=== PATIENT | female | born 1960 | race Caucasian/White ===

== ENCOUNTER 2016-07-01 00:21 | Emergency (ER) | payer MEDICAID ==
[2016-07-01] MEDS ORDERED: LIDOCAINE 1% INJ-PF (10 MG/ML) 30 ML SDV INJ ONE (01:58)
--- NOTE | 2016-07-01 05:45 | ER Document Report ---
ED Fall - General Chief Complaint: Fall Stated Complaint: FALL Mode of Arrival: Medic Information source: Patient Notes: 56-year-old female who lives at [facility] presents to emergency psychology department chair pain and laceration to right fifth finger status post mechanical fall. Patient reports was walking out of her bathroom this morning when she tripped and fell striking the left side of her head and lacerated her right fifth finger. States did not lose consciousness and remembers entire event however does not know where she cut her finger on. Denies vision changes, extremity weakness/numbness/tingling, nausea or vomiting, neck pain. States last tetanus within the last 2 years. TRAVEL OUTSIDE OF THE [place] IN LAST 30 DAYS: No - HPI Occurred: Just prior to arrival Where: Indoors Context: Tripped, Fell from standing Associated symptoms: None. denies: Lost consciousness Quality of pain: Achy Severity: Mild Pain Level: 2 - Related data Allergies/Adverse Reactions: hydromorphone HCl [From Dilaudid] Allergy (Verified 01/19/16 21:19) morphine [Morphine] Allergy (Verified 01/19/16 21:19) Past Medical History - General Information source: Patient - Social History Smoking Status: Former Smoker Frequency of alcohol use: None Drug Abuse: None Lives with: Other Family History: Reviewed & Not Pertinent, CVA, DM, Hypertension, Other - parkinson's - Past Medical History Cardiac Medical History: Reports: Hx Congestive Heart Failure, Hx Hypertension Pulmonary Medical History: Reports: Hx Bronchitis - chronic, Hx COPD Renal/ Medical History: Denies: Hx Peritoneal Dialysis Musculoskeltal Medical History: Reports Hx Fibromyalgia Psychiatric Medical History: Reports: Hx Anxiety, Hx Bipolar Disorder, Hx Depression Past Surgical History: Reports: Hx Breast Surgery - bilat lumpectomy, Hx Cardiac Catheterization - 07/19, no stents, Hx Cholecystectomy, Hx Orthopedic Surgery - back x 2, left knee, Hx Tubal Ligation. Denies: Hx Hysterectomy - Immunizations Hx Diphtheria, Pertussis, Tetanus Vaccination: Yes - UTD Hx Pneumococcal Vaccination: 01/03/15 Review of Systems - Review of Systems Constitutional: No symptoms reported EENT: No symptoms reported Cardiovascular: No symptoms reported Respiratory: No symptoms reported Gastrointestinal: No symptoms reported Genitourinary: No symptoms reported Female Genitourinary: No symptoms reported Musculoskeletal: See HPI Skin: See HPI Hematologic/Lymphatic: No symptoms reported Neurological/Psychological: No symptoms reported -: Yes All other systems reviewed and negative Physical Exam - Vital signs Vitals: Pulse Ox 93 07/01/16 00:27 - General General appearance: Appears well, Alert In distress: None - HEENT Head: Normocephalic, Ecchymosis - Patient has mild localized bruising to left forehead and slight tenderness to palpation. No instability, open wounds, or depression.. No: Atraumatic, Abrasions, Shukla's sign, Open wounds, Racoon's eyes, Tenderness, Other Eyes: Normal Conjunctiva: Normal Eyelashes: Normal Pupils: PERRL Ears: Normal External canal: Normal Tympanic membrane: Normal Sinus: Normal Nasal: Normal Mouth/Lips: Normal Mucous membranes: Normal, Moist Pharynx: Normal Neck: Normal - Respiratory Respiratory status: No respiratory distress Chest status: Nontender Breath sounds: Normal - CTAB Chest palpation: Normal - Cardiovascular Rhythm: Regular Heart sounds: Normal auscultation Murmur: No Pulses: Normal: Radial Normal capillary refill: Yes - Abdominal Inspection: Normal Distension: No distension Bowel sounds: Normal Tenderness: Nontender Organomegaly: No organomegaly - Back Back: Normal, Nontender - Extremities General upper extremity: Normal inspection, Nontender, Normal color, Normal ROM , Normal temperature General lower extremity: Normal inspection, Nontender, Normal color, Normal ROM , Normal temperature, Normal weight bearing Shoulder: Normal, Nontender Arm: Normal, Nontender Elbow: Normal, Nontender Forearm: Normal, Nontender Wrist: Normal, Nontender Hand: Laceration - Approximately 2 cm linear laceration to left distal palmar aspect right fifth finger. Full active, passive, and against resistance range of motion. Immediate capillary refill and sensation intact.. No: Normal, Nontender, Tender, Abrasion, Deformity, Dislocation, Ecchymosis, Instability, Nail injury, No evidence of human bite, No evidence of FB, Swelling, Tendon deficit, Other Hip: Normal, Nontender Thigh: Normal, Nontender Knee: Normal, Nontender Calf: Normal, Nontender Ankle: Normal, Nontender Foot: Normal, Nontender - Neurological Neuro grossly intact: Yes Cognition: Normal Orientation: AAOx4 [place] Coma Scale Eye Opening: Spontaneous [place] Coma Scale Verbal: Oriented [place] Coma Scale Motor: Obeys Commands Vira Coma Scale Total: 15 Speech: Normal Motor strength normal: LUE, RUE, LLE, RLE Sensory: Normal - Skin Skin Temperature: Warm Skin Moisture: Dry Skin Color: Normal Course - Re-evaluation Re-evalutation: 07/01/16 05:48 Patient hemodynamically stable, in no distress, neurologically intact. CT scan of head and finger x-ray negative for internal or osseous injury. Right fifth finger laceration thoroughly irrigated and wound edges approximated with interrupted nylon sutures. Patient tolerated well. Temporary finger splint placed for protection. Patient appears stable for discharge and agrees with home care, follow-up, ED return precautions. - Vital Signs Vital signs: Temp Pulse Resp BP Pulse Ox 97.8 F 11 L 162/88 H 96 07/01/16 00:33 07/01/16 06:09 07/01/16 06:09 07/01/16 06:09 - Diagnostic Test Radiology reviewed: Image reviewed, Reports reviewed Procedures - Laceration/Wound Repair Right Finger 5th digit Time completed: 05:15 Wound length (cm): 2 Wound's Depth, Shape: Superficial, Linear Laceration pre-procedure: Sterile PPE donned, Sterile drapes applied Anesthetic type: 1% Lidocaine Volume Anesthetic (mLs): 2 Wound explored: Clean, No foreign body removed Irrigated w/ Saline (mLs): 1,000 - with chlorhexidine Wound Debrided: Minimal Wound Repaired With: Sutures Suture Size/Type: 4:0, Nylon Number of Sutures: 4 Layer Closure?: No Post-procedure wound care: Sterile dressing applied - With bacitracin ointment, Splint applied - Protective finger splint Post-procedure NV exam normal: Yes Complications: No Hands front picture: 1 - Laceration Discharge - Discharge Clinical Impression: Fall Qualifiers: Encounter type: initial encounter Qualified Code(s): W19.XXXA - Unspecified fall, initial encounter Finger laceration Qualifiers: Encounter type: initial encounter Qualified Code(s): S61.219A - Laceration without foreign body of unspecified finger without damage to nail, initial encounter Forehead contusion Qualifiers: Encounter type: initial encounter Qualified Code(s): S00.83XA - Contusion of other part of head, initial encounter Condition: Stable Disposition: HOME, SELF-CARE Additional Instructions: Head Injury Precautions At this point, there is no evidence that your head injury is serious. Observation is necessary, however. Take only clear liquids for the first few hours, unless told otherwise by the doctor. If no pain medication was prescribed, you may take acetaminophen according to the directions on the bottle. Do not take any medication that may alter your level of alertness (unless you've discussed it with the doctor first) . Limit activity for the first 24 hours. Bed rest is best. During the first 24 hours, check to see approximately every two to three hours that the patient is easily arousable, responds normally, and can perform common tasks such as walking without difficulty. Contact your doctor or go to the hospital if any of the following things occur: Persistent vomiting, difficulty in arousing the patient, worsening or continued headache, or failure to improve as expected. Head injuries can cause symptoms that persist for a few days or even a few weeks. Contusion Your injury has resulted in a contusion -- a crushing of the deep tissues. No injury to important structures was detected during the physician's exam. Contusions vary in the amount of pain they cause, and in the length of time required for healing. Typically, the area will become bruised, and will remain painful to touch for two or three weeks. However, most patients are back to working and playing within a few days. After the initial period of rest and cold-packs, your symptoms (together with the doctor's recommendations) will determine how rapidly you can get back to full activity. Usually this means "do what feels okay, but don't do things that hurt." If re-examination was recommended, it's important to follow up as instructed. Call the doctor or return any time if pain increases, if swelling becomes severe, if you develop numbness or weakness in an injured extremity, or if any other alarming symptoms occur. Hand Laceration A laceration on the hand can present special problems. It may be difficult to keep the wound dry. Motion of the fingers can disturb the healing edges. Your work may involve exposure to damaging chemicals or water. Keep the wound clean and dry. If you can't keep the cut dry, undisturbed, and free of chemical exposure, please discuss this with the doctor. If any water or chemical gets onto the dressing, remove it, blot the wound dry, then apply a fresh bandage. Dressings should be changed every day. If you feel the stitches pulling as you move the hand, a splint or other form of protection is needed. If any signs of infection occur (swelling, redness, increasing tenderness, red streaks, tender lumps in the armpit, or fever), see the doctor immediately. Elevate the Injury Because of the nature of your injury, elevation will be helpful to reduce swelling. This also reduces infection risk in wounds. Keep the injury up above the level of your heart for at least the next 48 hours (or longer if the physician recommends it). LACERATION CARE: Your laceration has been sutured to keep the skin edges aligned during healing. The time of suture removal depends on the nature and location of your cut. Please follow the care instructions the doctor has outlined for you and return for further care, according to the schedule you've been given. Keep the wound and dressing clean. Unless you were told otherwise, you may shower daily, blotting the wound dry with a clean, unused towel. At other times, If the dressing gets wet or blood soaked, remove it and blot the wound dry, then reapply a new dressing. Unless you were instructed otherwise, dressings should be changed at least daily. If any signs of infection occur (swelling, redness, drainage, increasing tenderness, red streaks, tender lumps in the armpit or groin above the laceration, or fever), see the doctor immediately. ANTIBIOTIC OINTMENT PROTECTION: After cleansing, you should apply a thin coating of antibiotic ointment ( Bacitracin, not Neosporin) to the wounds at least three times daily. This lessens infection risk, and may decrease the amount of scarring. Use a q-tip or dull butter knife, not your finger, to apply this ointment. Any debris or ooze which builds up in the ointment should be gently rubbed off with a sterile gauze pad. Harder crusting may need to be gently scrubbed off with a clean wash cloth with soap and warm water, perhaps applying a warm, wet wash cloth to the wound for ten minutes first. Development of redness, severe itching, or blistering may mean allergy to the ointment. See the doctor. Acetaminophen Acetaminophen may be taken for pain relief or fever control. It's much safer than aspirin, offering a wider range of "safe" dosages. It is safe during . Some brand names are Tylenol, Panadol, Datril, Anacin 3, Tempra, and Liquiprin. Acetaminophen can be repeated every four hours. The following are maximum recommended dosages: WEIGHT Dose Drops Elixir Chewable( 80mg) (LBS.) drprs=droppers tsp=teaspoon 6 40 mg .4 ml (1/2) 6-11 80 mg .8 ml (full) 1/2 tsp 1 tab 12-16 120 mg 1 1/2 drprs 3/4 tsp 1 1/2 tabs 17-23 160 mg 2 drprs 1 tsp 2 tabs 24-30 240 mg 3 drprs 1 1/2 tsp 3 tabs 30-35 320 mg 2 tsp 4 tabs 36-41 360 mg 2 1/4 tsp 4 1 /2 tabs 42-47 400 mg 2 1/2 tsp 5 tabs 48-53 480 mg 3 tsp 6 tabs 54-59 520 mg 3 1/4 tsp 6 1 /2 tabs 60-64 560 mg 3 1/2 tsp 7 tabs 65-70 600 mg 3 3/4 tsp 7 1 /2 tabs 71-76 640 mg 4 tsp 8 tabs 77-82 720 mg 4 1/2 tsp 9 tabs 83-88 800 mg 5 tsp 10 tabs >89 pounds or adults 650 mg to 900 mg Acetaminophen can be repeated every four hours. Maximum daily dose not to exceed 4000 mg. These maximum recommended dosages are slightly higher than the dosages written on the product container, but these dosages are very safe and well below the toxic dosage for acetaminophen. FOLLOW-UP CARE: Your sutures should be removed in 7 days. To facilitate a timely removal of your sutures, you may return to the Emergency Department at [facility]. You do not need to call for an appointment, but the best time to come in for suture removal is early in the morning. If you have been referred to another physician for follow-up care, call that physicians office for an appointment as you were instructed. If you experience a significant change in your laceration, or if you are concerned there may be an infection (swelling, redness, drainage, increasing tenderness, red streaks, tender lumps in the armpit or groin above the laceration, or fever) , return to the Emergency Department immediately re-evaluation. Forms: Elevated Blood Pressure
[2016-07-01 09:21] VITALS: BP 150/84
== END 2016-07-01 09:21 | disposition home or self-care (01) ==
LOC: ER 00:21
PROC: 0HQFXZZ Repair Right Hand Skin, External Approach (ICD-10-PCS; principal; 2016-07-01)
DX: S61.216A Laceration without foreign body of right little finger without damage to nail, initial encounter (principal); S00.83XA Contusion of other part of head, initial encounter; W19.XXXA Unspecified fall, initial encounter; Y93.89 Activity, other specified; Y92.121 Bathroom in nursing home as the place of occurrence of the external cause; I10 Essential (primary) hypertension; J44.9 Chronic obstructive pulmonary disease, unspecified; Z88.5 Allergy status to narcotic agent; Z87.891 Personal history of nicotine dependence
CPT/HCPCS: 70450; 99284

== ENCOUNTER 2016-08-01 12:40 | Emergency (ER) | payer MEDICAID ==
[2016-08-01] MEDS ORDERED: MECLIZINE HCL 25 MG TABLET PO ONE (14:34)
[2016-08-01] MEDS ORDERED: IPRATROPIUM/ALBUTEROL 0.5-2.5 MG/3 ML AMPUL NEB ONE (14:34)
--- NOTE | 2016-08-01 15:13 | ER Document Report ---
ED General - General Chief Complaint: Vertigo Stated Complaint: VERTIGO Mode of Arrival: Medic Information source: Patient, H Records Notes: This is a 56-year-old female with multiple medical problems who presents from [facility] where she resides with multiple complaints. She states that for the past 3 days she has felt dizzy and off balance with standing. She also feels a fullness in her right ear. She has had no fevers or chills. No vision changes. No paresthesias or weakness. No headache. She has a history of COPD and continues to smoke. She does require chronic O2 at 4L NC. Today she has had increased cough and wheeze. She is tolerating po well. No dysuria. No diarrhea. No vomiting. TRAVEL OUTSIDE OF THE [place] IN LAST 30 DAYS: No - Related Data Allergies/Adverse Reactions: hydromorphone HCl [From Dilaudid] Allergy (Verified 01/19/16 21:19) morphine [Morphine] Allergy (Verified 01/19/16 21:19) Past Medical History - Social History Smoking Status: Former Smoker Chew tobacco use (# tins/day): No Frequency of alcohol use: None Drug Abuse: None Family History: Reviewed & Not Pertinent, CVA, DM, Hypertension, Other - parkinson's - Past Medical History Cardiac Medical History: Reports: Hx Congestive Heart Failure, Hx Hypertension Pulmonary Medical History: Reports: Hx Bronchitis - chronic, Hx COPD Renal/ Medical History: Denies: Hx Peritoneal Dialysis Musculoskeltal Medical History: Reports Hx Fibromyalgia Psychiatric Medical History: Reports: Hx Anxiety, Hx Bipolar Disorder, Hx Depression Past Surgical History: Reports: Hx Breast Surgery - bilat lumpectomy, Hx Cardiac Catheterization - 07/19, no stents, Hx Cholecystectomy, Hx Orthopedic Surgery - back x 2, left knee, Hx Tubal Ligation. Denies: Hx Hysterectomy - Immunizations Hx Diphtheria, Pertussis, Tetanus Vaccination: Yes - UTD Hx Pneumococcal Vaccination: 01/03/15 Review of Systems - Review of Systems Constitutional: No symptoms reported. denies: Chills, Fever EENT: No symptoms reported Cardiovascular: No symptoms reported. denies: Chest pain Respiratory: See HPI, Cough. denies: Short of breath Gastrointestinal: No symptoms reported Genitourinary: No symptoms reported Musculoskeletal: No symptoms reported Hematologic/Lymphatic: No symptoms reported Neurological/Psychological: See HPI. denies: Weakness, Headaches Physical Exam - Vital signs Vitals: Pulse Ox 89 L 08/01/16 12:45 - General General appearance: Appears well, Alert In distress: None Notes: alert, conversant without dyspnea - HEENT Head: Normocephalic, Atraumatic Pupils: PERRL Mucous membranes: Normal - Respiratory Respiratory status: No respiratory distress Breath sounds: Wheezing - scattered diffuse inspiratory and expiratory wheezes bilaterally - Cardiovascular Rhythm: Regular Heart sounds: Normal auscultation, S1 appreciated, S2 appreciated Murmur: No - Abdominal Inspection: Normal Distension: Distended bladder Bowel sounds: Normal Tenderness: Nontender - Extremities Notes: trace bilateral LE edema, DNVI - Neurological Neuro grossly intact: Yes Cognition: Normal Orientation: AAOx4 Speech: Normal Cranial nerves: Normal Cerebellar coordination: No: Gait ataxia, Finger-nose rhombey Motor strength normal: LUE, RUE, LLE, RLE Notes: Patient states she feels dizzy only when she stands. Neuro intact. - Psychological Associated symptoms: Normal affect, Normal mood Course - Re-evaluation Re-evalutation: 08/01/16 19:15 Patient states that she has had complete resolution of her dizziness after the meclizine. She states she is feeling much better and would like to go home. We did discuss the findings on chest x-ray of the bilateral infiltrates which may be a combination of edema and possible infiltrates. She is afebrile, not short of breath, and has a normal white count. Also she is adamant that she wants to go home and not stay in the hospital. She is received IV antibiotics in the ER and will be discharged with oral antibiotics, Lasix, and close primary care follow-up. We did discuss strict return precautions to include fevers, increasing breathing difficulty, chest pain, or any worsening symptoms and she is very agreeable with this plan. - Vital Signs Vital signs: Temp Pulse Resp BP Pulse Ox 97.6 F 87 18 151/68 H 96 08/01/16 22:02 08/01/16 22:02 08/01/16 22:02 08/01/16 22:02 08/01/16 22:02 - Laboratory Result Diagrams: 08/01/16 13:00 08/01/16 13:00 Laboratory results interpreted by me: 04/29/17 04/29/17 04/29/17 13:00 13:00 13:00 Hgb 15.7 H RDW 15.3 H AST 7 L NT-Pro-B Natriuret Pep 1130 H Discharge - Discharge Clinical Impression: Vertigo, Tobacco abuse Pneumonia Qualifiers: Pneumonia type: due to unspecified organism Laterality: bilateral Lung location : unspecified part of lung Qualified Code(s): J18.9 - Pneumonia, unspecified organism Condition: Stable Disposition: HOME, SELF-CARE Additional Instructions: PNEUMONIA: Your examination indicates that you have pneumonia. This is an infection of the lung tissue, usually caused by bacteria or a virus. Symptoms include cough, fever, shaking chills, chest pain, shortness of breath, and coughing up bloody sputum. Treatment for bacterial pneumonia includes rest, antibiotics for 10 to 14 days, increasing your clear liquid intake, a cool mist humidifier at your bedside, and fever medication. Often, a repeat chest X-ray is performed in a few weeks--even if you feel better--to ascertain whether the infection has completely resolved and no underlying lung problem is present. You should call the physician if you develop persistent vomiting, high fever that does not respond to fever medication, increasing shortness of breath , confusion, or lethargy. Also, failure to improve within two to three days is an indication for re-examination. ANTIBIOTIC INJECTION: You have been given an antibiotic injection. Sometimes the injection must be combined with antibiotic pills. For some infections, the shot provides all the antibiotic that's needed. Common side effects of antibiotics include nausea, intestinal cramping, or diarrhea. These are very unusual following a shot. Women may develop vaginal yeast infections, and babies can get yeast ( thrush) in the mouth following the use of antibiotics. Contact your physician if you develop significant side effects from this medication. Allergy to this antibiotic can result in hives, wheezing, faintness, or itching. If symptoms of allergy occur, call the doctor at once. ROCEPHIN: You have been given an injection of an antibiotic called Rocephin ( ceftriaxone). Sometimes the injection must be combined with antibiotic pills. For some infections, such as an uncomplicated ear infection, Rocephin provides all the antibiotic that's needed. The antibiotic will be in your body for about two days. For serious infections, we usually repeat doses of Rocephin daily. Side effects are very unusual following a shot. Women may develop vaginal yeast infections, and babies can get yeast (thrush) in the mouth following the use of antibiotics. Contact your physician if you have symptoms with this medication. Allergy to this antibiotic can result in hives, wheezing, faintness, or itching. If symptoms of allergy occur, call the doctor at once. ANTIBIOTIC THERAPY: You have been given an antibiotic prescription. It's important that you take all the medication, unless instructed otherwise by your physician. Failure to complete the entire course can result in relapse of your condition. Common side effects of antibiotics include nausea, intestinal cramping, or diarrhea. Women may develop vaginal yeast infections, and babies can get yeast (thrush) in the mouth following the use of antibiotics. Contact your physician if you develop significant side effects from this medication. Allergy to this antibiotic can result in hives, wheezing, faintness, or itching. If symptoms of allergy occur, stop the medication and call the doctor. DOXYCYCLINE: Doxycycline (Vibramycin, Doryx) is an antibiotic of the tetracycline family. This type of drug is useful for infections of the respiratory tract and genital tract, and is sometimes used for intestinal infections. Unlike most tetracyclines, doxycycline can be taken with food. It is longer acting, and (usually) less prone to side effects than regular tetracycline. Tetracycline antibiotics can stain immature teeth and SHOULD NOT BE TAKEN BY CHILDREN, NURSING MOTHERS, OR WOMEN. Tetracyclines can make you more prone to sunburn. Abdominal cramping, nausea, and diarrhea are occasional side effects. Women may experience vaginal yeast infections. Call the doctor at once if you develop hives, itching, shortness of breath , or lightheadedness. Vertigo You have experienced an episode of vertigo -- a whirling dizziness which may be accompanied by nausea and vomiting or staggering. Vertigo is often caused by an irritation of the inner ear, in which case it is called labyrinthitis. It can also be a symptom of a degenerating inner ear, nerve damage, or brain injury. Your physician has evaluated you to determine whether any further testing is necessary. Vertigo is often treated with dramamine or meclizine. These medications are helpful, but stronger medication may be needed if you are vomiting. Rest in bed. You should not drive or operate machinery until completely better. It may take one to three weeks for recovery. If there are new symptoms, such as decreased hearing or vision, severe headache, weakness or faintness, or confusion, call the physician. FOLLOW-UP CARE: If you have been referred to a physician for follow-up care, call the physician s office for an appointment as you were instructed or within the next two days. If you experience worsening or a significant change in your symptoms, notify the physician immediately or return to the Emergency Department at any time for re-evaluation. Prescriptions: Doxycycline Hyclate 100 mg PO BID #20 capsule Furosemide [Lasix] 20 mg PO DAILY #5 tablet Meclizine HCl 25 mg PO Q8H PRN #10 tablet PRN Reason: for dizziness Prednisone [Deltasone 20 mg Tablet] 3 tab PO DAILY 5 Days Forms: Smoking Cessation Education
[2016-08-01 15:50] LABS: ABSOLUTE BASOPHILS # (AUTO) 0.1 10^3/uL (0.0-0.2); ABSOLUTE EOSINOPHILS # (AUTO) 0.2 10^3/uL (0.0-0.6); ABSOLUTE LYMPHOCYTES (AUTO) 2.3 10^3/uL (0.5-4.7); ABSOLUTE MONOCYTES (AUTO) 0.6 10^3/uL (0.1-1.4); ABSOLUTE NEUT (AUTO) 6.3 10^3/uL (1.7-8.2); BASOPHILS % (AUTO) 0.8 % (0-2); HEMATOCRIT 45.9 % (36.0-47.0); HEMOGLOBIN 15.7 g/dL (12.0-15.5); HGB HCT DIFFERENCE 1.2; LYMPHOCYTES % (AUTO) 24.1 % (13-45); MEAN CORPUSCULAR HEMOGLOBIN 31.3 pg (27.0-33.4); MEAN CORPUSCULAR HGB CONC 34.2 g/dL (32.0-36.0); MEAN CORPUSCULAR VOLUME 91 fl (80-97); RED BLOOD COUNT 5.03 10^6/uL (3.72-5.28); RED CELL DISTRIBUTION WIDTH 15.3 % (11.5-14.0); SEGMENTED NEUTROPHILS % (AUTO) 67.1 % (42-78); WHITE BLOOD COUNT 9.3 10^3/uL (4.0-10.5)
[2016-08-01 15:56] LABS: ALANINE AMINOTRANSFERASE 17 U/L (9-52); ALBUMIN 3.9 g/dL (3.5-5.0); ALKALINE PHOSPHATASE 79 U/L (38-126); ANION GAP 13 (5-19); ASPARTATE AMINO TRANSFERASE 7 U/L (14-36); BILIRUBIN,DIRECT 0.2 mg/dL (0.0-0.4); BILIRUBIN,TOTAL 0.5 mg/dL (0.2-1.3); BLOOD UREA NITROGEN 9 mg/dL (7-20); CARBON DIOXIDE 25 mmol/L (22-30); CHLORIDE 103 mmol/L (98-107); CREATINE KINASE 36 U/L (30-135); CREATININE RESULT 0.77 mg/dL (0.52-1.25); GLUCOSE 92 mg/dL (75-110); POTASSIUM 4.5 mmol/L (3.6-5.0); SODIUM 140.5 mmol/L (137-145); TOTAL PROTEIN 7.3 g/dL (6.3-8.2)
[2016-08-01 16:21] LABS: CREATINE KINASE MB 2.15 ng/mL (<4.55); TROPONIN I < 0.012 ng/mL
[2016-08-01] MEDS ORDERED: CEFTRIAXONE 1 GM/D5W RTU 50 ML IV ONE (16:54)
[2016-08-01] MEDS ORDERED: FUROSEMIDE INJ/PF 20 MG/2 ML SDV IV ONE (16:54)
[2016-08-01] MEDS ORDERED: AZITHROMYCIN INJ 500 MG VIAL IV ONE (16:55)
[2016-08-01 19:19] LABS: APPEARANCE,URINE CLEAR; BILIRUBIN,URINE NEGATIVE (NEGATIVE); GLUCOSE, URINE NEGATIVE (NEGATIVE); KETONES,URINE NEGATIVE (NEGATIVE); LEUKOCYTE ESTERASE,URINE NEGATIVE (NEGATIVE); NITRITE,URINE NEGATIVE (NEGATIVE); PROTEIN,URINE NEGATIVE (NEGATIVE); URINE SPECIFIC GRAVITY 1.003; UROBILINOGEN,URINE NEGATIVE mg/dL (<2.0)
[2016-08-01 22:07] VITALS: BP 151/68
--- NOTE | 2016-08-02 10:19 | EKG REPORT ---
SEVERITY:- ABNORMAL ECG - SINUS RHYTHM CONSIDER RVH W/ SECONDARY REPOL ABNORMALITY : Confirmed by: Bernadette Schmitz 02-Aug-2016 10:18:17
== END 2016-08-01 22:08 | disposition home or self-care (01) ==
LOC: ER 12:40
DX: J18.9 Pneumonia, unspecified organism (principal); R42 Dizziness and giddiness; Z87.891 Personal history of nicotine dependence; J44.9 Chronic obstructive pulmonary disease, unspecified; R05 Cough; R06.2 Wheezing
CPT/HCPCS: 93005; 94640; 99284; 96375; 96365; 96367; 36415; 87040; 82553; 82550; 85025; 80053; 81001; 84484; 83880; 71010; 70450; 93010; J1940; J0456; J0696; J7620

== ENCOUNTER 2016-08-30 18:41 | Inpatient (IN) | payer MEDICARE, MEDICAID ==
[2016-08-30] MEDS ORDERED: ALBUTEROL SULFATE 0.083% NEB 2.5 MG/3 ML AMPUL NEB ONE (18:57)
[2016-08-30] MEDS ORDERED: IPRATROPIUM/ALBUTEROL 0.5-2.5 MG/3 ML AMPUL NEB ONE (18:57)
[2016-08-30] MEDS ORDERED: METHYLPREDNISOLONE INJ 125 MG/2 ML SDV IV ONE (18:57)
--- NOTE | 2016-08-30 19:04 | ER Document Report ---
ED Respiratory Problem - General Chief Complaint: Shortness Of Breath Stated Complaint: DIFFICULTY BREATHING Time Seen by Provider: 08/30/16 18:52 Mode of Arrival: Stretcher Information source: Patient, Emergency Med Personnel TRAVEL OUTSIDE OF THE [place] IN LAST 30 DAYS: No - HPI Patient complains to provider of: COPD, Cough, Short of breath Onset: Other - 3 days Duration: Worse/persistent Quality of pain: No pain Context: Hx COPD, Smoker Short of Breath: Moderate Chest pain/discomfort: Tightness Cough: Productive Sputum consistency: Mucoid Associated symptoms: Congestion, Cough, Short of breath, Wheezing Similar symptoms previously: Yes Notes: Patient is a 56-year-old female with a history of coronary artery disease, COPD , CVA, [place], bipolar disorder, who is chronically on oxygen at 3 L, who continues to smoke as well, who was sent to the emergency room via EMS from [facility] complains of difficulty breathing, respiratory distress, confusion over the past 2-3 days, she has a productive cough, as well as a fever - Related Data Allergies/Adverse Reactions: hydromorphone HCl [From Dilaudid] Allergy (Verified 01/19/16 21:19) morphine [Morphine] Allergy (Verified 01/19/16 21:19) Home Medications: Current Home Medications Albuterol Sulfate [Proair HFA Inhalation Aerosol 8.5 gm MDI] 2 puff IH QID 08/31 [History] Albuterol Sulfate [Ventolin 0.083% Neb 2.5 mg/3 ml Ampul] 2.5 mg NEB Q6 [History] Atorvastatin Calcium 10 mg PO DAILY 08/31/16 [History] Cholecalciferol (Vitamin D3) [Vitamin D3 1000 Unit Tablet] 1 tab PO DAILY [History] Escitalopram Oxalate 20 mg PO DAILY 08/31/16 [History] Fluticasone/Salmeterol [Advair 250-50 Diskus 14 Dose/Diskus] 14 inh IH DAILY [History] Potassium Chloride 10 meq PO DAILY 08/31/16 [History] Past Medical History - General Information source: Patient, Emergency Med Personnel - Social History Smoking Status: Current Every Day Smoker Family History: Reviewed & Not Pertinent, CVA, DM, Hypertension, Other - parkinson's - Past Medical History Cardiac Medical History: Reports: Hx Congestive Heart Failure, Hx Hypertension Pulmonary Medical History: Reports: Hx Bronchitis - chronic, Hx COPD Renal/ Medical History: Denies: Hx Peritoneal Dialysis Musculoskeltal Medical History: Reports Hx Fibromyalgia Psychiatric Medical History: Reports: Hx Anxiety, Hx Bipolar Disorder, Hx Depression Past Surgical History: Reports: Hx Breast Surgery - bilat lumpectomy, Hx Cardiac Catheterization - 07/19, no stents, Hx Cholecystectomy, Hx Orthopedic Surgery - back x 2, left knee, Hx Tubal Ligation. Denies: Hx Hysterectomy - Immunizations Hx Diphtheria, Pertussis, Tetanus Vaccination: Yes - UTD Hx Pneumococcal Vaccination: 01/03/15 Review of Systems - Review of Systems Constitutional: Fever EENT: No symptoms reported Cardiovascular: No symptoms reported Respiratory: See HPI Gastrointestinal: No symptoms reported Genitourinary: No symptoms reported Female Genitourinary: No symptoms reported Musculoskeletal: No symptoms reported Skin: No symptoms reported Hematologic/Lymphatic: No symptoms reported Neurological/Psychological: No symptoms reported -: Yes All other systems reviewed and negative Physical Exam - Vital signs Vitals: Resp BP Pulse Ox 34 H 123/77 90 L 08/30/16 19:17 08/30/16 19:17 08/30/16 19:17 Interpretation: Tachycardic, Hypoxic, Tachypneic - General General appearance: Alert In distress: Moderate - HEENT Head: Normocephalic, Atraumatic Eyes: Normal Conjunctiva: Normal Extraocular movements intact: Yes Eyelashes: Normal Pupils: PERRL Mucous membranes: Dry Pharynx: Normal Neck: Normal - Respiratory Respiratory status: Respiratory distress, Labored, Pursed lip breathing, Tachypnea Chest status: Nontender Breath sounds: Productive cough, Rhonchi, Wheezing Chest palpation: Normal - Cardiovascular Rhythm: Regular Heart sounds: Normal auscultation Murmur: No - Abdominal Inspection: Normal Distension: No distension Bowel sounds: Normal Tenderness: Nontender Organomegaly: No organomegaly - Back Back: Normal, Nontender - Extremities General upper extremity: Normal inspection, Nontender, Normal color, Normal ROM , Normal temperature General lower extremity: Normal inspection, Nontender, Normal color, Normal ROM , Normal temperature, Normal weight bearing. No: Violetta's sign - Neurological Cognition: Confused Orientation: Disoriented to events [place] Coma Scale Eye Opening: Spontaneous [place] Coma Scale Verbal: Confused [place] Coma Scale Motor: Obeys Commands [place] Coma Scale Total: 14 Speech: Normal Motor strength normal: LUE, RUE, LLE, RLE Sensory: Normal - Psychological Associated symptoms: Normal affect - Skin Skin Temperature: Warm Skin Moisture: Dry Skin Color: Normal Course - Vital Signs Vital signs: Temp Pulse Resp BP Pulse Ox 99.0 F 22 H 133/64 H 95 08/31/16 00:01 08/31/16 00:01 08/31/16 00:01 08/31/16 00:01 - Laboratory Result Diagrams: 08/30/16 20:25 08/30/16 20:25 Laboratory results interpreted by me: 08/30/16 08/30/16 08/30/16 20:25 20:25 20:25 WBC 11.7 H RDW 15.2 H Absolute Neutrophils 8.4 H Potassium 3.5 L Carbon Dioxide 21 L Magnesium 1.4 L Total Bilirubin 1.5 H Direct Bilirubin 1.0 H AST 6 L NT-Pro-B Natriuret Pep Urine Protein Urine Ketones Urine Bilirubin Urine Urobilinogen 08/30/16 08/30/16 20:25 21:45 WBC RDW Absolute Neutrophils Potassium Carbon Dioxide Magnesium Total Bilirubin Direct Bilirubin AST NT-Pro-B Natriuret Pep 4170 H Urine Protein 30 H Urine Ketones TRACE H Urine Bilirubin SMALL H Urine Urobilinogen 4.0 H Critical Care Note - Critical Care Note Total time excluding time spent on procedures (mins): 30 Comments: Arrived in respiratory distress, tachypnea, requiring BiPAP placement and admission to [facility] for COPD exacerbation Discharge - Discharge Clinical Impression: COPD exacerbation Condition: Fair Disposition: ADMITTED INPATIENT Admitting Provider: Hospitalist Unit Admitted: [facility]
[2016-08-30 20:43] LABS: VENOUS BLOOD HCO3 24.7 mmol/L (20-32); VENOUS BLOOD PCO2 44.4 mmHg (35-63); VENOUS BLOOD PH 7.36 (7.30-7.42)
[2016-08-30 20:44] LABS: ABSOLUTE BASOPHILS # (AUTO) 0.1 10^3/uL (0.0-0.2); ABSOLUTE EOSINOPHILS # (AUTO) 0.1 10^3/uL (0.0-0.6); ABSOLUTE LYMPHOCYTES (AUTO) 1.8 10^3/uL (0.5-4.7); ABSOLUTE MONOCYTES (AUTO) 1.3 10^3/uL (0.1-1.4); ABSOLUTE NEUT (AUTO) 8.4 10^3/uL (1.7-8.2); BASOPHILS % (AUTO) 0.6 % (0-2); EOSINOPHILS % (AUTO) 0.7 % (0-6); HEMATOCRIT 43.2 % (36.0-47.0); HEMOGLOBIN 14.4 g/dL (12.0-15.5); LYMPHOCYTES % (AUTO) 15.2 % (13-45); MEAN CORPUSCULAR HGB CONC 33.3 g/dL (32.0-36.0); MEAN CORPUSCULAR VOLUME 90 fl (80-97); MONOCYTES % (AUTO) 11.6 % (3-13); RED BLOOD COUNT 4.78 10^6/uL (3.72-5.28); RED CELL DISTRIBUTION WIDTH 15.2 % (11.5-14.0); SEGMENTED NEUTROPHILS % (AUTO) 71.9 % (42-78); WHITE BLOOD COUNT 11.7 10^3/uL (4.0-10.5)
--- NOTE | 2016-08-30 20:50 | RADIOLOGY REPORT (SQ) ---
EXAM DESCRIPTION: CHEST SINGLE VIEW COMPLETED DATE/TIME: 08/30/2016 8:18 pm REASON FOR STUDY: db COMPARISON: 08/01/2016 EXAM PARAMETERS: NUMBER OF VIEWS: One view. TECHNIQUE: Single frontal radiographic view of the chest acquired. RADIATION DOSE: NA LIMITATIONS: Patient has made a shallow inspiration. FINDINGS: LUNGS AND PLEURA: The previously described patchy diffuse bilateral airspace disease appea rs improved. Residual changes are identified. MEDIASTINUM AND HILAR STRUCTURES: There is prominence of both hilar regions presumably representing p ulmonary vascular congestion although the possibility of hilar adenopathy cannot be excluded. HEART AND VASCULAR STRUCTURES: Cardiac silhouette is unchanged in configuration. BONES: No acute findings. HARDWARE: Stimulator device is identified projected in the lower thoracic spine. OTHER: No other significant finding. IMPRESSION: Overall interval improvement in the previously described patchy diffuse bilateral airspa ce disease. Other findings as noted above TECHNICAL DOCUMENTATION: JOB ID: [id number]
[2016-08-30 21:02] LABS: ALANINE AMINOTRANSFERASE 23 U/L (9-52); ALBUMIN 3.7 g/dL (3.5-5.0); ALKALINE PHOSPHATASE 119 U/L (38-126); ANION GAP 14 (5-19); ASPARTATE AMINO TRANSFERASE 6 U/L (14-36); BILIRUBIN,TOTAL 1.5 mg/dL (0.2-1.3); BLOOD UREA NITROGEN 9 mg/dL (7-20); CALCIUM 9.5 mg/dL (8.4-10.2); CARBON DIOXIDE 21 mmol/L (22-30); CHLORIDE 105 mmol/L (98-107); CREATINE KINASE 60 U/L (30-135); CREATININE RESULT 0.71 mg/dL (0.52-1.25); GLUCOSE 107 mg/dL (75-110); POTASSIUM 3.5 mmol/L (3.6-5.0); SODIUM 140.4 mmol/L (137-145); TOTAL PROTEIN 7.7 g/dL (6.3-8.2)
[2016-08-30 21:14] LABS: CREATINE KINASE MB 1.08 ng/mL (<4.55); TROPONIN I 0.014 ng/mL
[2016-08-30 22:06] LABS: APPEARANCE,URINE CLEAR; BILIRUBIN,URINE SMALL (NEGATIVE); GLUCOSE, URINE NEGATIVE (NEGATIVE); KETONES,URINE TRACE mg/dL (NEGATIVE); LEUKOCYTE ESTERASE,URINE NEGATIVE (NEGATIVE); NITRITE,URINE NEGATIVE (NEGATIVE); PROTEIN,URINE 30 mg/dL (NEGATIVE); URINE SPECIFIC GRAVITY 1.024
[2016-08-30] MEDS ORDERED: CEFTRIAXONE INJ 1000 MG VIAL IV ONE (22:24)
[2016-08-30] MEDS ORDERED: ACETAMINOPHEN 325 MG TABLET PO PRN (22:29)
[2016-08-30] MEDS ORDERED: CEFTRIAXONE 1 GM/D5W RTU 1 GM/50 ML RTUPB IV ONE (22:52)
[2016-08-31] MEDS ORDERED: AZITHROMYCIN 500 MG in DEXTROSE 5%-WATER 250 ML IV ONE (02:00)
[2016-08-31] MEDS ORDERED: AZITHROMYCIN INJ 500 MG VIAL IV PRN (02:00)
[2016-08-31] MEDS: IPRATROPIUM/ALBUTEROL 0.5-2.5 MG/3 ML AMPUL NEB SCH ×4 (02:16→19:59)
[2016-08-31] MEDS ORDERED: AZITHROMYCIN INJ 500 MG VIAL IV ONE (03:58)
[2016-08-31] MEDS: HEPARIN SOD (PORCINE) 5,000 UNIT/ML 1 ML SYRINGE SUBCUT SCH ×3 (06:09→21:01)
[2016-08-31] MEDS ORDERED: MAGNESIUM SULFATE/D5W 1 GM/100 ML RTUPB IV ONE (06:24)
[2016-08-31 06:30] LABS: ABSOLUTE LYMPHOCYTES (AUTO) 0.7 10^3/uL (0.5-4.7); ABSOLUTE MONOCYTES (AUTO) 0.3 10^3/uL (0.1-1.4); ABSOLUTE NEUT (AUTO) 8.4 10^3/uL (1.7-8.2); BASOPHILS % (AUTO) 0.2 % (0-2); HEMATOCRIT 42.6 % (36.0-47.0); HEMOGLOBIN 14.3 g/dL (12.0-15.5); HGB HCT DIFFERENCE 0.3; LYMPHOCYTES % (AUTO) 7.6 % (13-45); MEAN CORPUSCULAR HEMOGLOBIN 30.2 pg (27.0-33.4); MEAN CORPUSCULAR HGB CONC 33.4 g/dL (32.0-36.0); MEAN CORPUSCULAR VOLUME 90 fl (80-97); MONOCYTES % (AUTO) 3.2 % (3-13); RED BLOOD COUNT 4.72 10^6/uL (3.72-5.28); RED CELL DISTRIBUTION WIDTH 15.2 % (11.5-14.0); WHITE BLOOD COUNT 9.4 10^3/uL (4.0-10.5)
[2016-08-31 06:36] LABS: ANION GAP 14 (5-19); BLOOD UREA NITROGEN 7 mg/dL (7-20); CALCIUM 9.3 mg/dL (8.4-10.2); CARBON DIOXIDE 21 mmol/L (22-30); CHLORIDE 106 mmol/L (98-107); CREATININE RESULT 0.53 mg/dL (0.52-1.25); GLUCOSE 151 mg/dL (75-110); POTASSIUM 3.9 mmol/L (3.6-5.0)
[2016-08-31] MEDS ORDERED: LORAZEPAM INJ 2 MG/1 ML VIAL ONE (06:36)
[2016-08-31] MEDS ORDERED: CLONAZEPAM 1 MG TABLET PO PRN ×2 (06:37→13:54)
[2016-08-31] MEDS ORDERED: LORAZEPAM INJ 2 MG/1 ML VIAL IV ONE ×2 (06:37→12:30)
[2016-08-31] MEDS ORDERED: NICOTINE 14 MG/24 HR PATCH.TD24 TD SCH (06:45)
--- NOTE | 2016-08-31 06:47 | PDOC H&P ---
History of Present Illness Admission Date/PCP: 08/30/16 22:29 NO LOCALMD Patient complains of: shortness of breath and cough History of Present Illness: SUKHWINDER ARTIS is a 56 year old female with a resident of [facility] and has a medical history of home oxygen dependent COPD with ongoing tobacco abuse, bipolar, anxiety disorder, restless leg syndrome, CVA and hypertension. She has been in her usual state of health until approximately 3 days ago developing shortness of breath and cough which has been progressive leading to fever prompting her to seek evaluation in the emergency room where she was found to have pneumonia by history, chest x-ray and exam. She denies chest pain nausea or vomiting she admits exceptional anxiety requesting a nicotine patch and resumption of her home medications. Past Medical History Cardiac Medical History: Reports: Congestive Heart Failure, Hypertension Pulmonary Medical History: Reports: Bronchitis - chronic, Chronic Obstructive Pulmonary Disease (COPD) Musculoskeltal Medical History: Reports: Fibromyalgia Psychiatric Medical History: Reports: Bipolar Disorder, Depression Past Surgical History Past Surgical History: Reports: Cardiac Catheterization - 07/19, no stents, Cholecystectomy, Orthopedic Surgery - back x 2, left knee, Tubal Ligation Denies: Hysterectomy Social History Information Source: Patient, [facility] Records Smoking Status: Current Every Day Smoker Cigarettes Packs Per Day: 1 Frequency of Alcohol Use: None Hx Recreational Drug Use: No Drugs: None Hx Prescription Drug Abuse: No - Advance Directive Resuscitation Status: Do Not Resuscitate Family History Family History: Reviewed & Not Pertinent, CVA, DM, Hypertension, Other - parkinson's Parental Family History Reviewed: Yes Children Family History Reviewed: Yes Sibling(s) Family History Reviewed.: Yes Medication/Allergy Home Medications: Clonazepam [Klonopin 1 mg Tablet] 1.5 mg PO TIDP PRN 06/14/14 Pregabalin [Lyrica 100 mg Capsule] 100 mg PO TID 07/15/14 Benztropine Mesylate [Benztropine Mesylate 2 mg Tablet] 2 mg PO DAILY 05/29/15 Trazodone HCl 300 mg PO QHS PRN 05/29/15 Bupropion HCl [Wellbutrin] 100 mg PO DAILY 08/25/15 Lurasidone HCl [Latuda] 60 mg PO BID 08/25/15 Pantoprazole Sodium [Protonix] 40 mg PO DAILY 08/25/15 Tizanidine HCl [Zanaflex] 4 mg PO TID 08/25/15 Ibuprofen [Motrin 600 Mg Tablet] 600 mg PO TID #30 tablet 01/19/16 Albuterol Sulfate [Proair HFA Inhalation Aerosol 8.5 gm MDI] 2 puff IH QID 08/31 Albuterol Sulfate [Ventolin 0.083% Neb 2.5 mg/3 ml Ampul] 2.5 mg NEB Q6 Atorvastatin Calcium 10 mg PO DAILY 08/31/16 Cholecalciferol (Vitamin D3) [Vitamin D3 1000 Unit Tablet] 1 tab PO DAILY Escitalopram Oxalate 20 mg PO DAILY 08/31/16 Fluticasone/Salmeterol [Advair 250-50 Diskus 14 Dose/Diskus] 14 inh IH DAILY Potassium Chloride 10 meq PO DAILY 08/31/16 Allergies/Adverse Reactions: hydromorphone HCl [From Dilaudid] Allergy (Verified 01/19/16 21:19) morphine [Morphine] Allergy (Verified 01/19/16 21:19) Review of Systems Constitutional: PRESENT: as per HPI, chills, fatigue, fever(s), weakness Eyes: ABSENT: visual disturbances Ears: ABSENT: hearing changes Cardiovascular: ABSENT: chest pain, dyspnea on exertion, edema, orthropnea, palpitations Respiratory: PRESENT: cough, dyspnea, sputum. ABSENT: hemoptysis Gastrointestinal: ABSENT: abdominal pain, constipation, diarrhea, hematemesis, hematochezia, nausea, vomiting Genitourinary: ABSENT: dysuria, hematuria Musculoskeletal: ABSENT: joint swelling Neurological: ABSENT: abnormal gait, abnormal speech, confusion, dizziness, focal weakness, syncope Psychiatric: PRESENT: anxiety, depression Endocrine: ABSENT: cold intolerance, heat intolerance, polydipsia, polyuria Hematologic/Lymphatic: ABSENT: easy bleeding, easy bruising Physical Exam Vital Signs: Temp Pulse Resp BP Pulse Ox 98.1 F 86 20 155/64 H 91 L 08/31/16 04:17 08/31/16 04:17 08/31/16 04:17 08/31/16 04:17 08/31/16 04:17 Intake & Output 08/29/16 08/30/16 08/31/16 11:59 11:59 11:59 Weight 98.6 kg General appearance: PRESENT: cooperative, disheveled, mild distress, obese Head exam: PRESENT: atraumatic, normocephalic Eye exam: PRESENT: conjunctiva pink, EOMI, PERRLA. ABSENT: scleral icterus Ear exam: PRESENT: normal external ear exam Mouth exam: PRESENT: moist, tongue midline Neck exam: ABSENT: carotid bruit, JVD, lymphadenopathy, thyromegaly Respiratory exam: PRESENT: accessory muscle use, crackles, prolonged expiratory phas, rales, retraction, rhonchi, tachypnea. ABSENT: stridor, wheezes Cardiovascular exam: PRESENT: RRR. ABSENT: diastolic murmur, rubs, systolic murmur Pulses: PRESENT: normal dorsalis pedis pul GI/Abdominal exam: PRESENT: normal bowel sounds, soft. ABSENT: distended, guarding, mass, organolmegaly, rebound, tenderness Rectal exam: PRESENT: deferred Extremities exam: PRESENT: full ROM. ABSENT: calf tenderness, clubbing, pedal edema Neurological exam: PRESENT: alert, awake, oriented to person, oriented to place , oriented to time, oriented to situation, CN II-XII grossly intact. ABSENT: motor sensory deficit Psychiatric exam: PRESENT: appropriate affect, normal mood. ABSENT: homicidal ideation, suicidal ideation Skin exam: PRESENT: dry, intact, warm. ABSENT: cyanosis, rash Results Laboratory Results: 08/31/16 06:01 08/31/16 06:01 08/31/16 08/31/16 06:01 06:01 WBC 9.4 RBC 4.72 Hgb 14.3 Hct 42.6 MCV 90 MCH 30.2 MCHC 33.4 RDW 15.2 H Plt Count 201 Seg Neutrophils % 89.0 H Lymphocytes % 7.6 L Monocytes % 3.2 Eosinophils % 0.0 Basophils % 0.2 Absolute Neutrophils 8.4 H Absolute Lymphocytes 0.7 Absolute Monocytes 0.3 Absolute Eosinophils 0.0 Absolute Basophils 0.0 Sodium 141.0 Potassium 3.9 Chloride 106 Carbon Dioxide 21 L Anion Gap 14 BUN 7 Creatinine 0.53 Est GFR ( Amer) > 60 Est GFR (Non-Af Amer) > 60 Glucose 151 H Calcium 9.3 Impressions: Chest X-Ray 08/30/16 18:57 IMPRESSION: Overall interval improvement in the previously described patchy diffuse bilateral airspace disease. Other findings as noted above Assessment & Plan - Diagnosis (1) Pneumonia Is this a current diagnosis for this admission?: YesPlan: Pneumonia care set, empiric antibiotics, albuterol, oxygen and supportive care following up CBC (2) Hypomagnesemia Is this a current diagnosis for this admission?: YesPlan: Repletion and reevaluation as needed (3) Anxiety Is this a current diagnosis for this admission?: YesPlan: Resumption of reduced dose Klonopin (4) Tobacco abuse Is this a current diagnosis for this admission?: YesPlan: Tobacco Dependence patient received tobacco cessation counseling and offered nicotine replacement options (5) COPD exacerbation Is this a current diagnosis for this admission?: YesPlan: Secondary to pneumonia, complicated by tobacco. Incentive spirometry, flutter valve consider steroids a last resort given risk of psychosis with worsening depression and anxiety (6) Congestive cardiac failure Qualifiers: Congestive heart failure type: unspecified congestive heart failure type Congestive heart failure chronicity: unspecified congestive heart failure chronicity Qualified Code(s): I50.9 - Heart failure, unspecified Is this a current diagnosis for this admission?: YesPlan: Elevated BNP suggests congestive heart failure likely secondary to decompensated COPD and pneumonia consider echocardiogram. Initiate Vasotec (7) Hypokalemia Is this a current diagnosis for this admission?: YesPlan: Repletion reevaluation - Time Time Spent: 30 to 50 Minutes - Inpatient Certification Medical Necessity: Need Close Monitoring Due to Risk of Patient Decompensation
[2016-08-31] MEDS ORDERED: TRAZODONE HCL 50 MG TABLET PO PRN ×3 (07:00→14:17)
[2016-08-31] MEDS ORDERED: BENZTROPINE MESYLATE 1 MG TABLET PO SCH (07:00)
[2016-08-31] MEDS: GUAIFENESIN 600 MG TABLET.SA PO SCH ×2 (09:46→21:03)
[2016-08-31] MEDS: ENALAPRIL MALEATE 2.5 MG TABLET PO SCH (09:46)
[2016-08-31] MEDS: NICOTINE 14 MG/24 HR PATCH.TD24 TD SCH (09:47)
[2016-08-31] MEDS ORDERED: PREGABALIN 100 MG CAPSULE PO SCH (10:00)
[2016-08-31] MEDS ORDERED: LORAZEPAM INJ 2 MG/1 ML VIAL IV PRN (11:23)
[2016-08-31] MEDS: CEFTRIAXONE 1 GM/D5W RTU 50 ML IV SCH (12:43)
[2016-08-31] MEDS ORDERED: MAGNESIUM HYDROXIDE SUSP 30 ML UDCUP PO PRN (13:54)
[2016-08-31] MEDS ORDERED: MECLIZINE HCL 25 MG TABLET PO PRN (13:54)
[2016-08-31] MEDS ORDERED: LOPERAMIDE HCL 2 MG CAPSULE PO PRN (13:54)
[2016-08-31] MEDS ORDERED: TRAZODONE HCL 250 MG PO PRN (13:54)
[2016-08-31] MEDS ORDERED: (PENDING PHARMACY ID) (Tizanidine Hcl [Zanaflex] 4 MG) PO SCH (14:00)
[2016-08-31] MEDS ORDERED: TIZANIDINE HCL 4 MG TABLET PO SCH (14:00)
[2016-08-31] MEDS ORDERED: BUPROPION HCL 100 MG TABLET PO ONE (14:30)
[2016-08-31] MEDS: TIZANIDINE HCL 4 MG TABLET PO SCH ×2 (15:05→21:03)
[2016-08-31] MEDS: IBUPROFEN 600 MG TABLET PO SCH ×2 (15:06→21:04)
[2016-08-31] MEDS: GABAPENTIN 300 MG CAPSULE PO SCH ×2 (15:06→21:02)
[2016-08-31] MEDS ORDERED: (PENDING PHARMACY ID) (Lurasidone Hcl [Latuda] 60 MG) PO SCH (18:00)
[2016-08-31] MEDS: SIMVASTATIN 10 MG TABLET PO SCH (21:03)
[2016-08-31] MEDS: BUPROPION HCL 100 MG TABLET PO SCH (21:03)
[2016-08-31] MEDS: AZITHROMYCIN 500 MG in DEXTROSE 5%-WATER 250 ML IV SCH (21:06)
--- NOTE | 2016-08-31 21:13 | EKG REPORT ---
SEVERITY:- ABNORMAL ECG - SINUS RHYTHM RVH WITH SECONDARY REPOLARIZATION ABNORMALITY ABNORMAL T, CONSIDER ISCHEMIA, LATERAL LEADS : Confirmed by: Bernadette Schmitz 31-Aug-2016 21:12:52
[2016-08-31] MEDS ORDERED: AZITHROMYCIN 500 MG in DEXTROSE 5%-WATER 250 ML IV SCH (22:00)
[2016-08-31] MEDS ORDERED: ATORVASTATIN CALCIUM 10 MG TABLET PO SCH (22:00)
[2016-09-01] MEDS: IPRATROPIUM/ALBUTEROL 0.5-2.5 MG/3 ML AMPUL NEB SCH ×2 (02:12→07:56)
[2016-09-01] MEDS: HEPARIN SOD (PORCINE) 5,000 UNIT/ML 1 ML SYRINGE SUBCUT SCH ×3 (05:02→21:30)
[2016-09-01] MEDS: IBUPROFEN 600 MG TABLET PO SCH ×3 (05:03→21:30)
[2016-09-01] MEDS: TIZANIDINE HCL 4 MG TABLET PO SCH ×3 (05:03→21:30)
[2016-09-01] MEDS: GABAPENTIN 300 MG CAPSULE PO SCH ×3 (05:04→21:31)
[2016-09-01] MEDS: LANSOPRAZOLE 30 MG TAB.RAP.DR PO SCH (05:04)
[2016-09-01] MEDS: BUPROPION HCL 100 MG TABLET PO SCH ×3 (05:04→21:30)
[2016-09-01] MEDS ORDERED: ALBUTEROL SULFATE 0.042% NEB (1.25 MG/3 ML) AMPUL NEB PRN (09:42)
[2016-09-01] MEDS ORDERED: (PENDING PHARMACY ID) (Cholecalciferol (Vitamin D3) [Vitamin D3 2000 Unit Tablet] 2,000 UN PO SCH (10:00)
[2016-09-01] MEDS ORDERED: (PENDING PHARMACY ID) (Benztropine Mesylate [Benztropine Mesylate 2 Mg Tablet] 2 MG) PO SCH (10:00)
[2016-09-01] MEDS ORDERED: (PENDING PHARMACY ID) (Escitalopram Oxalate [Escitalopram Oxalate] 20 MG) PO SCH (10:00)
[2016-09-01] MEDS ORDERED: CHOLECALCIFEROL (D3) 1,000 UNIT TABLET PO SCH (10:00)
[2016-09-01] MEDS ORDERED: BUPROPION HCL 100 MG TABLET PO SCH (10:00)
[2016-09-01] MEDS ORDERED: FLUTICASONE/SALMETEROL DISKUS 250-50 MCG/DOSE IH SCH (10:00)
--- NOTE | 2016-09-01 10:11 | PROGRESS NOTE E ---
Progress Note NAME: SUKHWINDER ARTIS : 1960 AGE: 56Y DATE: 09/01/2016 ROOM: 308 SUBJECTIVE: The patient is lying in bed. She states she feels a little better today. The patient is wearing BiPAP. I asked the patient how she does on nasal cannula. The patient stated that she had not used the nasal cannula. The patient had no reported episodes of vomiting nor diarrhea. The patient does admit to having some difficulty urinating, but she states that she "has not had anything to drink." The patient has been afebrile. Her blood pressure has been in a good range, and the patient does not voice any other concerns at this time. REVIEW OF SYSTEMS: Rest of review of systems negative. MEDICATIONS: Medications have been reviewed. OBJECTIVE: GENERAL: The patient is a 56-year-old female who is awake, alert, and oriented to person, place, time, and situation. She is verbal, conversational, does not appear to be in any acute distress. VITAL SIGNS: Temperature is 97.9, pulse 61, respirations 22, blood pressure is 119/69, oxygen saturation is 94% on BiPAP. SKIN: Warm and dry. No rash. She is not diaphoretic. HEENT: Pupils equal, round, and reactive to light and accommodation. Conjunctiva is pink. BiPAP mask is in place. No JVP. CARDIOVASCULAR SYSTEM: Heart is regular. There is no murmur or rub. CHEST: Patient does have coarse lung sounds throughout, symmetrical, unlabored at this time. ABDOMEN: Soft, nontender, nondistended. BACK: No CVA tenderness or sacral edema. EXTREMITIES: No clubbing, cyanosis, edema. PSYCHIATRIC: Appropriate affect, pleasant mood. DIAGNOSTICS: Lab values are as follows: Hematology obtained on 08/31/2016: WBCs are 9.4, hemoglobin is 14.3, hematocrit is 42.6, platelet count is 201,000. Chemistry obtained on 08/31/2016: Sodium is 141, potassium is 3.9, chloride is 106, carbon dioxide 21, BUN 7, creatinine is 0.53, glucose 151, calcium is 9.3. Urine culture obtained on 08/30/2016 reveals no growth. IMPRESSION AND PLAN: 1. CHRONIC OBSTRUCTIVE PULMONARY DISEASE EXACERBATION. Will transition the nasal cannula with a goal of 88-92%. Will also repeat venous blood gas in 1 hour to ensure no CO2 retention and follow. 2. BILATERAL PNEUMONIA. Will continue IV antibiotic coverage and follow. 3. HYPOMAGNESEMIA. This was repleted, but will continue to supplement. 4. GENERAL ANXIETY DISORDER. Will continue the patient's home Klonopin. 5. TOBACCO DEPENDENCY. Spent 3 minutes discussing smoking cessation education. The patient declines any pharmacological intervention at this time; however, will continue p.r.n. nicotine patch. 6. ELEVATED BNP. Will obtain echocardiogram given the patient's persistent dyspnea as well and follow. 7. HYPOKALEMIA. This was repleted. 8. POLYPHARMACY. Have discussed this with the patient as well. 9. HYPERLIPIDEMIA. Will continue statin. 10. GASTROESOPHAGEAL REFLUX DISEASE. Will continue PPI therapy. 11. MAJOR DEPRESSION. Will continue home medications. 12. DVT PROPHYLAXIS. Will continue subcu heparin. DISPOSITION: The patient is a FULL CODE. Pending patient's symptomatology and diagnostic findings, will re-evaluate in the a.m. for possible discharge. Time spent on this followup including assessment, plan, physical examination, patient education is 25 minutes. DICTATING PHYSICIAN: ARIANNA SARMIENTO NP [id number] PHY#: [id number] ID: [id number] JOB#: [id number] ACCT: [id number] cc: >
[2016-09-01] MEDS: BENZTROPINE MESYLATE 1 MG TABLET PO SCH (10:21)
[2016-09-01] MEDS: ENALAPRIL MALEATE 2.5 MG TABLET PO SCH (10:21)
[2016-09-01] MEDS: CEFTRIAXONE 1 GM/D5W RTU 50 ML IV SCH (10:21)
[2016-09-01] MEDS: GUAIFENESIN 600 MG TABLET.SA PO SCH ×2 (10:21→21:31)
[2016-09-01] MEDS: CHOLECALCIFEROL (D3) 1,000 UNIT TABLET PO SCH (10:22)
[2016-09-01] MEDS: ESCITALOPRAM OXALATE 10 MG TABLET PO SCH (10:22)
[2016-09-01] MEDS: NICOTINE 14 MG/24 HR PATCH.TD24 TD SCH (10:22)
[2016-09-01] MEDS: MAGNESIUM OXIDE 400 MG TABLET PO SCH ×3 (10:25→18:02)
[2016-09-01] MEDS ORDERED: (PENDING PHARMACY ID) (Bupropion Hcl [Bupropion Xl] 150 MG) PO SCH (12:00)
[2016-09-01 12:18] LABS: VENOUS BLOOD BASE EXCESS 2.9 mmol/L; VENOUS BLOOD PCO2 44.6 mmHg (35-63); VENOUS BLOOD PH 7.42 (7.30-7.42)
[2016-09-01] MEDS: ALBUTEROL SULFATE 0.083% NEB 2.5 MG/3 ML AMPUL NEB SCH ×2 (13:35→20:23)
[2016-09-01] MEDS ORDERED: (PENDING PHARMACY ID) (Lurasidone Hcl [Latuda] 60 MG) PO SCH (17:00)
[2016-09-01] MEDS: BENZONATATE 100 MG CAPSULE PO PRN (18:02)
[2016-09-01] MEDS: SIMVASTATIN 10 MG TABLET PO SCH (21:29)
[2016-09-01] MEDS: AZITHROMYCIN 500 MG in DEXTROSE 5%-WATER 250 ML IV SCH (21:32)
[2016-09-02] MEDS: BENZONATATE 100 MG CAPSULE PO PRN (02:22)
[2016-09-02] MEDS: HEPARIN SOD (PORCINE) 5,000 UNIT/ML 1 ML SYRINGE SUBCUT SCH (05:10)
[2016-09-02] MEDS: LANSOPRAZOLE 30 MG TAB.RAP.DR PO SCH (05:11)
[2016-09-02] MEDS: TIZANIDINE HCL 4 MG TABLET PO SCH (05:11)
[2016-09-02] MEDS: IBUPROFEN 600 MG TABLET PO SCH (05:11)
[2016-09-02] MEDS: BUPROPION HCL 100 MG TABLET PO SCH (05:11)
[2016-09-02] MEDS: GABAPENTIN 300 MG CAPSULE PO SCH (05:11)
[2016-09-02] MEDS ORDERED: FUROSEMIDE INJ/PF 40 MG/4 ML SDV IV ONE (07:30)
[2016-09-02] MEDS ORDERED: POTASSIUM CHLORIDE 10 MEQ TABLET.SA PO ONE (07:30)
[2016-09-02] MEDS: ALBUTEROL SULFATE 0.083% NEB 2.5 MG/3 ML AMPUL NEB SCH (08:13)
--- NOTE | 2016-09-02 08:48 | DISCHARGE SUMMARY E ---
Discharge Summary NAME: SUKHWINDER ARTIS : 1960 AGE: 56Y ADMITTED: 08/30/2016 DISCHARGED: 09/02/2016 CODE STATUS: DO NOT RESUSCITATE, DO NOT INTUBATE. PRIMARY CARE PROVIDER: Hospice. DISCHARGE DIAGNOSES: 1. Chronic obstructive pulmonary disease exacerbation. 2. Acute on chronic hypoxemic respiratory failure. 3. Pulmonary fibrosis. 4. End-stage chronic obstructive pulmonary disease. 5. Bilateral pneumonia. 6. Hypomagnesemia. 7. Generalized anxiety disorder. 8. Tobacco dependency. 9. Hypokalemia. 10. Polypharmacy. 11. Hyperlipidemia. 12. Gastroesophageal reflux disease. 13. Major depression. DISCHARGE MEDICATIONS PER HOSPICE: 1. Ceftin 500 mg p.o. b.i.d., #14 tablets and 0 refills. 2. Desyrel 250 mg p.o. nightly p.r.n. 3. Zanaflex 4 mg p.o. every 8 hours. 4. Zocor 10 mg p.o. daily. 5. Potassium chloride 10 mEq p.o. daily. 6. Percocet 5/325, 1-1/2 tablets p.o. every 6 hours. 7. Omeprazole 20 mg p.o. daily. 8. Nasonex 2 sprays nasally every 12 hours p.r.n. 9. Antivert 25 mg p.o. every 8 hours p.r.n. 10. Milk of magnesia 30 mL p.o. nightly p.r.n. 11. Latuda 60 mg p.o. b.i.d. 12. Motrin 600 mg p.o. with meals. 13. Guaifenesin plus codeine 5 mL p.o. every 4 hours p.r.n. 14. Neurontin 300 mg p.o. every 8 hours. 15. Lexapro 20 mg p.o. daily. 16. Pennsaid 1 application topically q.i.d. p.r.n. 17. Klonopin 1.5 mg p.o. every 8 hours p.r.n. 18. Vitamin D3, 2000 International Units p.o. daily. 19. Wellbutrin XL 150 mg p.o. b.i.d. 20. Benztropine mesylate 10 mg p.o. daily. 21. Albuterol 2.5 mg nebs every 8 hours p.r.n. 22. ProAir HFA 2 puffs inhalation every 6 hours. 23. Tylenol 500 mg p.o. every 4 hours p.r.n. DIET: As tolerated. ACTIVITY: As tolerated. HISTORY OF PRESENT ILLNESS: The patient is a 56-year-old daughter female with a past medical history of pulmonary fibrosis and subsequent end-stage COPD who is home O2 dependent and on hospice. The patient presented to the emergency department with a chief complaint of shortness of breath and cough. The patient had been in her usual state of health until approximately 3 days prior to presentation when the patient presented with shortness of breath and cough which had been progressive, leading to fever. The patient received evaluation in the emergency department where she was found to have pneumonia on chest x-ray. On examination, the patient denied any nausea or vomiting and admitted to exceptional anxiety and was requesting a nicotine patch and the resumption of her home medications. The patient was given antibiotics in the emergency department and was referred to the hospitalists for admission and management. HOSPITAL COURSE: The patient was admitted to continuous telemetry unit. The patient was gently hydrated and the patient's white count improved with antibiotic therapy. The patient was transitioned from the BiPAP to nasal cannula for which she did tolerate. The patient was able to get out of bed to the bedside commode with very minimal assistance. The patient was also diuresed given evidence of pulmonary vascular congestion and symptoms of this, for which the patient responded nicely. The patient's potassium was replaced. The morning of discharge, the patient is quite eager for discharge and would like to return home with hospice as prior. The patient does want her pneumonia treated with prescription and therefore, Rocephin has been provided and the patient is eager for discharge. DIAGNOSTICS: 1. Lab values are as follows: a. Hematology obtained on 08/31/2016: WBC 9.4, hemoglobin 14.3, hematocrit 42.6, platelet count 201,000. b. Venous blood gas obtained on 09/01/2016; pH 7.42, pCO2 of 44.6, bicarb 28. c. Chemistry obtained on 08/31/2016: Sodium 141, potassium 3.9, chloride 106, carbon dioxide 21, BUN 7, creatinine 0.53, glucose 151, calcium 9.3, magnesium 1.4, bilirubin 1.5, AST 6, ALT 23, alkaline phosphatase 119. CK is 60, CK-MB is 1.08. Troponin 0.014. BNP is 4170. Total protein 7.7, albumin 3.7. d. Microbiology: Urine culture obtained on 08/30/2016 reveals no growth. 2. Chest x-ray obtained on 08/30/2016 revealed overall improvement of the previously described patchy diffuse bilateral air-space disease. PHYSICAL EXAMINATION: GENERAL: The patient is a frail, chronically ill-appearing 56-year-old female who is awake, alert and oriented to person, place, time and situation. She is verbal, conversational, and does not appear to be in acute distress. VITAL SIGNS: As follows: Temperature 98.1, pulse 73, respirations 20, blood pressure 145/76, oxygen saturation 90% on 6L nasal cannula. SKIN: Warm and dry. No rash. Not diaphoretic. HEENT: Pupils are equal, round and reactive to light and accommodation. Conjunctivae are pale. There is no JVD. CARDIOVASCULAR SYSTEM: Heart is regular. There is no murmur or rub. CHEST: Very diminished, symmetrical and slightly labored. ABDOMEN: Soft, nontender, nondistended. BACK: No CVA tenderness or sacral edema. EXTREMITIES: No clubbing, cyanosis, or edema. DISCHARGE PLAN: The patient will be receiving the services of [facility] as the patient already has these established. TIME SPENT: Time spent on this discharge including assessment, plan, physical examination, patient education, and resource alignment was 25 minutes. DICTATING PHYSICIAN: ARIANNA SARMIENTO NP [id number] PHY#: [id number] ID: [id number] JOB#: [id number] ACCT: [id number] cc:BRIANNA VAUGHN M.D. ARIANNA SARMIENTO NP > [facility]
[2016-09-02] MEDS: ESCITALOPRAM OXALATE 10 MG TABLET PO SCH (10:29)
[2016-09-02] MEDS: MAGNESIUM OXIDE 400 MG TABLET PO SCH (10:29)
[2016-09-02] MEDS: GUAIFENESIN 600 MG TABLET.SA PO SCH (10:29)
[2016-09-02] MEDS: CHOLECALCIFEROL (D3) 1,000 UNIT TABLET PO SCH (10:29)
[2016-09-02] MEDS: ENALAPRIL MALEATE 2.5 MG TABLET PO SCH (10:30)
[2016-09-02] MEDS: NICOTINE 14 MG/24 HR PATCH.TD24 TD SCH (10:30)
[2016-09-02] MEDS: BENZTROPINE MESYLATE 1 MG TABLET PO SCH (10:30)
[2016-09-02] MEDS: CEFTRIAXONE 1 GM/D5W RTU 50 ML IV SCH (10:35)
[2016-09-02 12:09] VITALS: BP 114/49
--- NOTE | 2016-09-02 13:09 | XCELERA REPORT ---
[address] [address] Transthoracic Echocardiogram Report Name: SUKHWINDER ARTIS Age: 56 yrs Gender: Female : 1960 Patient Status: Inpatient Patient Location: [id number] Study Date: 09/01/2016 02:32 PM Height: 68 in Weight: 220 lb BSA: 2.1 m2 Procedure: A two-dimensional transthoracic echocardiogram with color flow and Doppler was performed. Study Quality: Fair. Reason For Study: Elevated BNP, Dyspnea History: Elevated BNP, Dyspnea. Ordering Physician: ARIANNA SARMIENTO Performed By: Sanaz Jon Interpretation Summary The left ventricle is normal in size. There is normal left ventricular wall thickness. LV EF is > than 65% Left ventricular systolic function is normal. Doppler measurements suggest normal left ventricular diastolic function The left ventricular wall motion is normal. There is no thrombus. The right ventricle is moderate to severely dilated. There is mild right ventricular hypertrophy. The right ventricular systolic function is mildly reduced. The right atrium is mild to moderately dilated. The left atrium is mildly dilated. The interatrial septum is intact with no evidence for an atrial septal defect. There is no evidence of mitral valve prolapse. There is no vegetation seen on the mitral valve. There is no mitral valve stenosis. There is a moderate amount of mitral regurgitation There is no aortic valvular vegetation. There is no aortic valve stenosis There is no LVOT obstruction. There is aortic sclerosis without stenosis. No aortic regurgitation is present. There is no tricuspid stenosis. There is a moderate to severe amount of tricuspid regurgitation RVSP is 80 tto 85 mm of Hg , with RA mean of 5 to 10. There is a moderate amount of pulmonic regurgitation There is no pericardial effusion. MMode/2D Measurements \T\ Calculations RVDd: 4.6 cm LVIDd: 4.3 cm FS: 41.6 % Ao root diam: 2.6 cm IVSd: 0.80 cm LVIDs: 2.5 cm EDV(Teich): 81.8 ml LVPWd: 0.79 cm ESV(Teich): 22.2 ml Ao root area: 5.1 cm2 EF(Teich): 72.9 % LA dimension: 4.0 cm Doppler Measurements \T\ Calculations MV E max susie: MV P1/2t max susie: Ao V2 max: LV V1 max P.6 cm/sec 107.6 cm/sec 188.5 cm/sec 8.7 mmHg MV A max susie: MV P1/2t: 51.0 msec Ao max PG: LV V1 max: 101.7 cm/sec 14.2 mmHg 147.6 cm/sec MV E/A: 1.0 MVA(P1/2t): 4.3 cm2 MV dec slope: 617.9 cm/sec2 MV dec time: 0.19 sec PA V2 max: PI end-d susie: TR max susie: 99.2 cm/sec 158.7 cm/sec 433.0 cm/sec PA max PG: TR max P.9 mmHg 75.0 mmHg Left Ventricle The left ventricle is normal in size. There is normal left ventricular wall thickness. LV EF is > than 65%. Left ventricular systolic function is normal. Doppler measurements suggest normal left ventricular diastolic function. The left ventricular wall motion is normal. There is no thrombus. There is no ventricular septal defect visualized. Right Ventricle The right ventricle is moderate to severely dilated. There is mild right ventricular hypertrophy. The right ventricular systolic function is mildly reduced. Atria The right atrium is mild to moderately dilated. The left atrium is mildly dilated. The interatrial septum is intact with no evidence for an atrial septal defect. Mitral Valve There is no evidence of mitral valve prolapse. There is no vegetation seen on the mitral valve. There is no mitral valve stenosis. There is a moderate amount of mitral regurgitation. Aortic Valve There is no aortic valvular vegetation. There is no aortic valve stenosis. There is no LVOT obstruction. There is aortic sclerosis without stenosis. No aortic regurgitation is present. Tricuspid Valve There is no tricuspid stenosis. There is a moderate to severe amount of tricuspid regurgitation. There is servere pulmonary hypertension by echo. RVSP is 80 tto 85 mm of Hg , with RA mean of 5 to 10. Pulmonic Valve There is no pulmonic valvular stenosis. There is a moderate amount of pulmonic regurgitation. Great Vessels The aortic root is normal size. Effusions There is no pericardial effusion. : ARIANNA SARMIENTO > Geeta Young
== END 2016-09-02 12:00 | disposition home health service (06) | DRG 193 ==
LOC: ER 18:41 → EH 22:29 → UNDOADMIN 22:42 → EH 22:42 → 3N 08-31 02:08
PROVIDERS: ADMIT Internal Medicine; ATTEND Internal Medicine
PROC: 5A09457 Assistance with Respiratory Ventilation, 24-96 Consecutive Hours, Continuous Positive Airway Pressure (ICD-10-PCS; principal; 2016-08-30)
DX: J18.9 Pneumonia, unspecified organism (principal); J96.21 Acute and chronic respiratory failure with hypoxia; J44.1 Chronic obstructive pulmonary disease with (acute) exacerbation; I50.9 Heart failure, unspecified; J84.10 Pulmonary fibrosis, unspecified; E83.42 Hypomagnesemia; F41.1 Generalized anxiety disorder; E87.6 Hypokalemia; E78.5 Hyperlipidemia, unspecified; K21.9 Gastro-esophageal reflux disease without esophagitis; F32.9 Major depressive disorder, single episode, unspecified; M79.7 Fibromyalgia; Z66 Do not resuscitate; Z79.899 Other long term (current) drug therapy; Z88.8 Allergy status to other drugs, medicaments and biological substances; F17.210 Nicotine dependence, cigarettes, uncomplicated; Z90.49 Acquired absence of other specified parts of digestive tract
CPT/HCPCS: 36415; 71010; 80048; 80053; 81001; 82550; 82553; 82803; 83735; 83880; 84484; 85025; 87086; 93005; 93010; 93306; 94640; 94660; 94667; 94668; 94799; 96374; 99291; J0456; J0696; J1644; J1940; J2060; J2930; J3475; J3490; J7060; J7620

== ENCOUNTER 2016-10-28 13:58 | Observation (INO) | payer OTHER, MEDICARE, MEDICAID ==
--- NOTE | 2016-10-28 14:26 | ER Document Report ---
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 She was placed on amoxicillin last week and finished a course for suspected UTI. Patient is in no distress and unable to provide any additional history. PE: No respiratory distress. alert, confused, oriented x0, moves all 4 extremities. Mild B/L wheezing. I have greeted and performed a rapid initial assessment of this patient. A comprehensive ED assessment and evaluation of the patient, analysis of test results and completion of the medical decision making process will be conducted by additional ED providers. TRAVEL OUTSIDE OF THE [place] IN LAST 30 DAYS: No - Related Data Allergies/Adverse Reactions: hydromorphone HCl [From Dilaudid] Allergy (Verified 01/19/16 21:19) morphine [Morphine] Allergy (Verified 01/19/16 21:19) Past Medical History - Social History Family history: Reviewed & Not Pertinent - Past Medical History Cardiac Medical History: Reports: Hx Congestive Heart Failure, Hx Hypertension Pulmonary Medical History: Reports: Hx Bronchitis - chronic, Hx COPD Renal/ Medical History: Denies: Hx Peritoneal Dialysis Musculoskeltal Medical History: Reports Hx Fibromyalgia Psychiatric Medical History: Reports: Hx Anxiety, Hx Bipolar Disorder, Hx Depression Past Surgical History: Reports: Hx Breast Surgery - bilat lumpectomy, Hx Cardiac Catheterization - 07/19, no stents, Hx Cholecystectomy, Hx Orthopedic Surgery - back x 2, left knee, Hx Tubal Ligation. Denies: Hx Hysterectomy - Immunizations Hx Diphtheria, Pertussis, Tetanus Vaccination: Yes - UTD
[2016-10-28 14:43] LABS: ABSOLUTE BASOPHILS # (AUTO) 0.1 10^3/uL (0.0-0.2); ABSOLUTE EOSINOPHILS # (AUTO) 0.1 10^3/uL (0.0-0.6); ABSOLUTE LYMPHOCYTES (AUTO) 2.1 10^3/uL (0.5-4.7); ABSOLUTE MONOCYTES (AUTO) 0.8 10^3/uL (0.1-1.4); ABSOLUTE NEUT (AUTO) 9.6 10^3/uL (1.7-8.2); BASOPHILS % (AUTO) 0.6 % (0-2); EOSINOPHILS % (AUTO) 0.8 % (0-6); HEMATOCRIT 52.3 % (36.0-47.0); HEMOGLOBIN 17.8 g/dL (12.0-15.5); HGB HCT DIFFERENCE 1.1; LYMPHOCYTES % (AUTO) 16.8 % (13-45); MEAN CORPUSCULAR HEMOGLOBIN 30.1 pg (27.0-33.4); MEAN CORPUSCULAR HGB CONC 34.1 g/dL (32.0-36.0); MEAN CORPUSCULAR VOLUME 88 fl (80-97); MONOCYTES % (AUTO) 6.5 % (3-13); RED BLOOD COUNT 5.94 10^6/uL (3.72-5.28); RED CELL DISTRIBUTION WIDTH 16.3 % (11.5-14.0); SEGMENTED NEUTROPHILS % (AUTO) 75.3 % (42-78); WHITE BLOOD COUNT 12.7 10^3/uL (4.0-10.5)
[2016-10-28 14:49] LABS: VENOUS BLOOD BASE EXCESS 1.2 mmol/L; VENOUS BLOOD HCO3 24.6 mmol/L (20-32); VENOUS BLOOD PCO2 36.1 mmHg (35-63); VENOUS BLOOD PH 7.45 (7.30-7.42)
[2016-10-28 15:02] LABS: ALANINE AMINOTRANSFERASE 27 U/L (9-52); ALBUMIN 4.3 g/dL (3.5-5.0); ALKALINE PHOSPHATASE 84 U/L (38-126); ANION GAP 13 (5-19); ASPARTATE AMINO TRANSFERASE 11 U/L (14-36); BILIRUBIN,DIRECT 0.3 mg/dL (0.0-0.4); BLOOD UREA NITROGEN 11 mg/dL (7-20); CALCIUM 9.6 mg/dL (8.4-10.2); CARBON DIOXIDE 22 mmol/L (22-30); CHLORIDE 103 mmol/L (98-107); CREATINE KINASE 62 U/L (30-135); CREATININE RESULT 0.78 mg/dL (0.52-1.25); GLUCOSE 107 mg/dL (75-110); LIPASE 62.3 U/L (23-300); POTASSIUM 3.9 mmol/L (3.6-5.0); SODIUM 137.8 mmol/L (137-145); TOTAL PROTEIN 8.4 g/dL (6.3-8.2)
[2016-10-28 15:04] LABS: ALCOHOL < 10 mg/dL (NONE DETECTED)
[2016-10-28] MEDS ORDERED: NORMAL SALINE 1000 ML 1,000 ML IV PRN ×2 (15:14→18:30)
--- NOTE | 2016-10-28 15:15 | RADIOLOGY REPORT (SQ) ---
EXAM DESCRIPTION: CHEST SINGLE VIEW COMPLETED DATE/TIME: 10/28/2016 2:53 pm REASON FOR STUDY: cough COMPARISON: 08/30/2016 EXAM PARAMETERS: NUMBER OF VIEWS: One view. TECHNIQUE: Single frontal radiographic view of the chest acquired. RADIATION DOSE: NA LIMITATIONS: None. FINDINGS: LUNGS AND PLEURA: Ill-defined airspace disease is present in the right upper lobe and in t he left lung. There is hilar fullness bilaterally. There is no pleural effusion. There are no new findings. There is slight improvement since earlier study. MEDIASTINUM AND HILAR STRUCTURES: No masses. Contour normal. HEART AND VASCULAR STRUCTURES: Heart normal in size. Normal vasculature. BONES: No acute findings. HARDWARE: None in the chest. OTHER: No other significant finding. IMPRESSION: Chronic airspace disease with slight improvement since the prior study. TECHNICAL DOCUMENTATION: JOB ID: [id number]
--- NOTE | 2016-10-28 15:18 | ER Document Report ---
ED General - General Chief Complaint: Altered Mental Status Stated Complaint: ALTERED MENTAL STATUS Time Seen by Provider: 10/28/16 14:24 Mode of Arrival: Stretcher Information source: Outside Facility Records TRAVEL OUTSIDE OF THE [place] IN LAST 30 DAYS: No - HPI Patient complains to provider of: AMS Onset: This morning Notes: Patient is a 56-year-old female with multiple medical problems, including end- stage COPD/emphysema, who was brought to the emergency room by EMS from assisted living facility, for change in mental status, patient is a poor historian at this point in time, and is unable to provide much detail as to the course of her illness - Related Data Allergies/Adverse Reactions: hydromorphone HCl [From Dilaudid] Allergy (Verified 10/28/16 14:55) morphine [Morphine] Allergy (Verified 10/28/16 14:55) Home Medications: Current Home Medications Benztropine Mesylate [Benztropine Mesylate 2 mg Tablet] 2 mg PO DAILY 10/28/16 [ History] Bupropion HCl [Bupropion HCl Sr] 150 mg PO QAM 10/28/16 [History] Escitalopram Oxalate 20 mg PO DAILY 10/28/16 [History] Lurasidone HCl [Latuda] 60 mg PO BID 10/28/16 [History] Potassium Chloride 10 meq PO DAILY 10/28/16 [History] Simvastatin [Simvastatin] 10 mg PO QHS 10/28/16 [History] Tizanidine HCl [Zanaflex] 4 mg PO Q8H 10/28/16 [History] Past Medical History - General Information source: [facility] Records - Social History Smoking Status: Former Smoker Family History: Reviewed & Not Pertinent, CVA, DM, Hypertension, Other - parkinson's Patient has suicidal ideation: No Patient has homicidal ideation: No - Past Medical History Cardiac Medical History: Reports: Hx Congestive Heart Failure, Hx Hypertension Pulmonary Medical History: Reports: Hx Bronchitis - chronic, Hx COPD Renal/ Medical History: Denies: Hx Peritoneal Dialysis Musculoskeltal Medical History: Reports Hx Fibromyalgia Psychiatric Medical History: Reports: Hx Anxiety, Hx Bipolar Disorder, Hx Depression Past Surgical History: Reports: Hx Breast Surgery - bilat lumpectomy, Hx Cardiac Catheterization - 07/19, no stents, Hx Cholecystectomy, Hx Orthopedic Surgery - back x 2, left knee, Hx Tubal Ligation. Denies: Hx Hysterectomy - Immunizations Hx Diphtheria, Pertussis, Tetanus Vaccination: Yes - UTD Hx Pneumococcal Vaccination: 01/03/15 Review of Systems - Review of Systems -: Yes ROS unobtainable due to patient's medical condition Physical Exam - Vital signs Vitals: Temp Pulse Resp BP Pulse Ox 98.3 F 56 L 14 126/69 H 97 10/28/16 14:37 10/28/16 14:37 10/28/16 14:37 10/28/16 14:37 10/28/16 14:37 Interpretation: Hypotensive - General General appearance: Alert In distress: None - HEENT Head: Normocephalic, Atraumatic Eyes: Normal Cornea: Normal Extraocular movements intact: Yes Eyelashes: Normal Mucous membranes: Dry Pharynx: Other - Small particles of crushed pills stuck to patient's tongue - Respiratory Respiratory status: No respiratory distress Chest status: Nontender Breath sounds: Nonproductive cough, Wheezing Chest palpation: Normal - Cardiovascular Rhythm: Regular Heart sounds: Normal auscultation - Abdominal Inspection: Normal Distension: No distension Bowel sounds: Normal Tenderness: Nontender Organomegaly: No organomegaly - Back Back: Normal, Nontender - Extremities General upper extremity: Normal inspection General lower extremity: Normal inspection - Neurological Cognition: Confused Orientation: Disoriented to events Vira Coma Scale Eye Opening: Spontaneous Vira Coma Scale Verbal: Confused [place] Coma Scale Motor: Obeys Commands [place] Coma Scale Total: 14 - Skin Skin Temperature: Warm Skin Moisture: Dry Skin Color: Normal Course - Re-evaluation Re-evalutation: 10/28/16 15:54 Patient's daughter is at bedside and reports that patient's mentation is not at baseline, when I ask her questions she responds with an answer that is completely incongruent, she does have a mild wheeze bilaterally, but otherwise vital signs are stable, daughter reports that she received a call from the [facility] on Wednesday stating that patient fell, had no apparent injury so she therefore was not sent to the hospital for evaluation at that time, but they reports she was mildly confused at that time, she was also recently treated for a urinary tract infection 10/28/16 16:39 Patient was discussed with Dr. Holley, hospitalist who agrees to admit for further evaluation - Vital Signs Vital signs: Temp Pulse Resp BP Pulse Ox 98.3 F 56 L 14 126/69 H 97 10/28/16 14:37 10/28/16 14:37 10/28/16 14:37 10/28/16 14:37 10/28/16 14:37 - Laboratory Result Diagrams: 10/28/16 14:28 10/28/16 14:28 Laboratory results interpreted by me: 10/28/16 10/28/16 10/28/16 14:28 14:28 14:28 WBC 12.7 H RBC 5.94 H Hgb 17.8 H Hct 52.3 H RDW 16.3 H Absolute Neutrophils 9.6 H VBG pH 7.45 H AST 11 L Total Protein 8.4 H Urine Urobilinogen 10/28/16 15:15 WBC RBC Hgb Hct RDW Absolute Neutrophils VBG pH AST Total Protein Urine Urobilinogen 4.0 H - Diagnostic Test Radiology reviewed: Image reviewed, Reports reviewed - EKG Interpretation by Me EKG shows normal: Sinus rhythm Rate: Normal Rhythm: NSR - Transfer of Care Care transferred to following provider: Dr Holley Discharge - Discharge Clinical Impression: COPD exacerbation, Metabolic encephalopathy Pneumonia Qualifiers: Pneumonia type: due to unspecified organism Laterality: unspecified laterality Lung location: unspecified part of lung Qualified Code(s): J18.9 - Pneumonia, unspecified organism Condition: Fair Disposition: ADMITTED INPATIENT Admitting Provider: Hospitalist Unit Admitted: Telemetry Referrals: BLAKE HALL DO [Primary Care Provider] - Follow up as needed
[2016-10-28 15:28] LABS: APPEARANCE,URINE CLEAR; BILIRUBIN,URINE NEGATIVE (NEGATIVE); GLUCOSE, URINE NEGATIVE (NEGATIVE); KETONES,URINE NEGATIVE (NEGATIVE); LEUKOCYTE ESTERASE,URINE NEGATIVE (NEGATIVE); NITRITE,URINE NEGATIVE (NEGATIVE); PROTEIN,URINE NEGATIVE (NEGATIVE); URINE SPECIFIC GRAVITY 1.019
[2016-10-28] MEDS ORDERED: ALBUTEROL SULFATE 0.083% NEB 2.5 MG/3 ML AMPUL NEB ONE (15:53)
--- NOTE | 2016-10-28 16:17 | RADIOLOGY REPORT (SQ) ---
EXAM DESCRIPTION: CT HEAD WITHOUT COMPLETED DATE/TIME: 10/28/2016 4:08 pm REASON FOR STUDY: ams COMPARISON: 08/01/2016. TECHNIQUE: Axial images acquired through the brain without intravenous contrast. Images reviewed wi th bone, brain and subdural windows. Images stored on PACS. All CT scanners at this facility use dose modulation, iterative reconstruction, and/or weight based d osing when appropriate to reduce radiation dose to as low as reasonably achievable (ALARA). [facility]: Dose Right [facility]: CareDose [facility]: Dose Right [facility]: Teradose 4D [facility]: Smart HyperWeek RADIATION DOSE: Up-to-date CT equipment and radiation dose reduction techniques were employed. CTDIv ol: 64.6 - 67.0 mGy. DLP: 2216 mGy-cm. mGy. LIMITATIONS: None. FINDINGS: VENTRICLES: Normal size and contour. CEREBRUM: No masses. No hemorrhage. No midline shift. Normal miller/white matter differentiation. N o evidence for acute infarction. CEREBELLUM: No masses. No hemorrhage. No alteration of density. No evidence for acute infarction. EXTRAAXIAL SPACES: No fluid collections. No masses. ORBITS AND GLOBE: No intra- or extraconal masses. Normal contour of globe without masses. CALVARIUM: No fracture. PARANASAL SINUSES: No fluid or mucosal thickening. SOFT TISSUES: No mass or hematoma. OTHER: No other significant finding. IMPRESSION: NORMAL BRAIN CT WITHOUT CONTRAST. TECHNICAL DOCUMENTATION: JOB ID: [id number] Quality ID # [id number]: Final reports with documentation of one or more dose reduction techniques (e.g., Au tomated exposure control, adjustment of the mA and/or kV according to patient size, use of iterative reconstruction technique) 2010 [employer]- All Rights Reserved
[2016-10-28] MEDS ORDERED: CEFTRIAXONE INJ 1000 MG VIAL IV ONE (16:36)
[2016-10-28 17:06] LABS: URINE BARBITURATES SCREEN NEGATIVE; URINE METHADONE SCREEN NEGATIVE; URINE OPIATES LOW UNCONFIRMED POSITIVE; URINE PHENCYCLIDINE SCREEN NEGATIVE
--- NOTE | 2016-10-28 17:37 | EKG REPORT ---
SEVERITY:- ABNORMAL ECG - SINUS RHYTHM PROBABLE LEFT ATRIAL ABNORMALITY PROBABLE RVH W/ SECONDARY REPOL ABNORMALITY ST ELEVATION, CONSIDER INFERIOR INJURY : Confirmed by: Geeta Young MD 28-Oct-2016 17:37:17
[2016-10-28] MEDS ORDERED: ONDANSETRON HCL INJ/PF 4 MG/2 ML SDV IV PRN (18:30)
[2016-10-28] MEDS ORDERED: ACETAMINOPHEN 325 MG TABLET PO PRN (18:30)
--- NOTE | 2016-10-28 18:49 | PDOC H&P ---
History of Present Illness Admission Date/PCP: 10/28/16 17:39 BLAKE HALL DO Patient complains of: Confusion and alteration in mental status History of Present Illness: SUKHWINDER ARTIS is a 56 year old female, with history of chronic respiratory failure, pulmonary fibrosis, end-stage COPD, on hospice apparently was [facility] because of confusion and alteration in mental status. Family is at bedside who stated that the patient started having some behavioral changes for the past few days. She noted that when she received a call from the [facility] about the situation. Patient had a fall but no significant injuries sustained. It was reported earlier that the patient is uncooperative and was given a medication by the nursing staff. Again it is unclear what medication was given according to the family. Daughter receive a call from hospice nurse who eventually sent the patient to the emergency room for evaluation of confusion. In the emergency room the patient shows mildly elevated WBC but no fever and likewise no acute changes of the chest x-ray was noted. Urinalysis was likewise negative. She had a history of polypharmacy and the daughter stated that when the patient was admitted to rehab in the past medications were cut down and the patient did well. [facility] and was resumed on all her medications which the patient daughter thinks it is too much. The patient apparently has been in hospice for almost a year. When the patient was asked she denies any specific complaints at all. She is a DO NOT RESUSCITATE. She refused to be hospitalized however she agreed to stay overnight with her daughter's persistence. The patient was then admitted. Emergency room physician reports wheezing earlier and patient was given nebulizer and it has resolved. Past Medical History Past Medical History: Medication reconciliation pending verification from the patient's pharmacist. Cardiac Medical History: Reports: Congestive Heart Failure, Coronary Artery Disease, Hypertension Pulmonary Medical History: Reports: Bronchitis - chronic, Chronic Obstructive Pulmonary Disease (COPD) - End-stage, Respiratory Failure - Chronic, Other - Pulmonary fibrosis Musculoskeltal Medical History: Reports: Fibromyalgia Psychiatric Medical History: Reports: Bipolar Disorder, Depression Past Surgical History Past Surgical History: Reports: Cardiac Catheterization - 07/19, no stents, Cholecystectomy, Orthopedic Surgery - back x 2, left knee, Tubal Ligation Denies: Hysterectomy Social History Information Source: Relative Smoking Status: Former Smoker Frequency of Alcohol Use: None Hx Recreational Drug Use: No Drugs: None Hx Prescription Drug Abuse: No Family History Family History: CVA, DM, Hypertension, Other - parkinson's Parental Family History Reviewed: Yes Children Family History Reviewed: Yes Sibling(s) Family History Reviewed.: Yes Medication/Allergy Home Medications: Benztropine Mesylate [Benztropine Mesylate 2 mg Tablet] 2 mg PO DAILY 10/28/16 Bupropion HCl [Bupropion HCl Sr] 150 mg PO QAM 10/28/16 Escitalopram Oxalate 20 mg PO DAILY 10/28/16 Lurasidone HCl [Latuda] 60 mg PO BID 10/28/16 Potassium Chloride 10 meq PO DAILY 10/28/16 Simvastatin [Simvastatin] 10 mg PO QHS 10/28/16 Tizanidine HCl [Zanaflex] 4 mg PO Q8H 10/28/16 Allergies/Adverse Reactions: hydromorphone HCl [From Dilaudid] Allergy (Verified 10/28/16 14:55) morphine [Morphine] Allergy (Verified 10/28/16 14:55) Review of Systems Constitutional: PRESENT: weakness - Generally but chronic. ABSENT: chills, fever(s), headache(s), night sweats, weight gain, weight loss Eyes: ABSENT: visual disturbances Ears: ABSENT: hearing changes Nose, Mouth, and Throat: ABSENT: mouth pain, sore throat Cardiovascular: ABSENT: chest pain, dyspnea on exertion, edema, orthropnea, palpitations Respiratory: PRESENT: cough - Chronic. ABSENT: hemoptysis Gastrointestinal: ABSENT: abdominal pain, constipation, diarrhea, hematemesis, hematochezia, melena, nausea, vomiting Genitourinary: ABSENT: dysuria, hematuria Musculoskeletal: ABSENT: joint swelling Integumentary: ABSENT: pruritus, rash, wounds Neurological: PRESENT: confusion. ABSENT: abnormal gait, abnormal speech, dizziness, focal weakness, syncope Psychiatric: ABSENT: anxiety, depression, homidical ideation, suicidal ideation Endocrine: ABSENT: cold intolerance, heat intolerance, polydipsia, polyphagia, polyuria Hematologic/Lymphatic: ABSENT: easy bleeding, easy bruising Physical Exam Vital Signs: Temp Pulse Resp BP Pulse Ox 98.3 F 56 L 14 126/69 H 97 10/28/16 14:37 10/28/16 14:37 10/28/16 14:37 10/28/16 14:37 10/28/16 14:37 General appearance: PRESENT: no acute distress, cooperative, other - Nasal cannula oxygen Head exam: PRESENT: atraumatic, normocephalic Eye exam: PRESENT: conjunctiva pale, EOMI, PERRLA. ABSENT: scleral icterus Ear exam: PRESENT: normal external ear exam. ABSENT: drainage Mouth exam: PRESENT: dry mucosa, neck supple, tongue midline Neck exam: ABSENT: carotid bruit, JVD, lymphadenopathy, thyromegaly Respiratory exam: PRESENT: clear to auscultation terra. ABSENT: rales, rhonchi, wheezes Cardiovascular exam: PRESENT: RRR. ABSENT: diastolic murmur, rubs, systolic murmur Pulses: PRESENT: normal dorsalis pedis pul Vascular exam: PRESENT: normal capillary refill GI/Abdominal exam: PRESENT: normal bowel sounds, soft. ABSENT: distended, guarding, mass, organolmegaly, rebound, tenderness Rectal exam: PRESENT: deferred Extremities exam: PRESENT: full ROM. ABSENT: calf tenderness, clubbing, pedal edema Neurological exam: PRESENT: alert, awake, oriented to person, oriented to place , oriented to time, oriented to situation Psychiatric exam: PRESENT: appropriate affect, normal mood. ABSENT: homicidal ideation, suicidal ideation Skin exam: PRESENT: dry, intact, warm. ABSENT: cyanosis, rash Results Impressions: Chest X-Ray 10/28/16 14:24 IMPRESSION: Chronic airspace disease with slight improvement since the prior study. Head CT 10/28/16 15:53 IMPRESSION: NORMAL BRAIN CT WITHOUT CONTRAST. Assessment & Plan - Diagnosis (1) Metabolic encephalopathy Is this a current diagnosis for this admission?: Yes (2) Chronic respiratory failure with hypoxia Is this a current diagnosis for this admission?: Yes (3) End stage COPD Is this a current diagnosis for this admission?: Yes (4) Pulmonary fibrosis Is this a current diagnosis for this admission?: Yes (5) Generalized anxiety disorder Is this a current diagnosis for this admission?: Yes (6) Situational depression Is this a current diagnosis for this admission?: Yes (7) Hyperlipidemia Qualifiers: Hyperlipidemia type: unspecified Qualified Code(s): E78.5 - Hyperlipidemia, unspecified Is this a current diagnosis for this admission?: Yes (8) Coronary artery disease Qualifiers: Coronary Disease-Associated Artery/Lesion type: [place] artery [place] vs. transplanted heart: [place] heart Associated angina: without angina Qualified Code(s): I25.10 - Atherosclerotic heart disease of [place] coronary artery without angina pectoris Is this a current diagnosis for this admission?: Yes (9) Gastroesophageal reflux disease Qualifiers: Esophagitis presence: without esophagitis Qualified Code(s): K21.9 - Gastro-esophageal reflux disease without esophagitis Is this a current diagnosis for this admission?: Yes - Time Time Spent: 30 to 50 Minutes - Plan Summary Plan Summary: The patient will be placed in observation. We will [facility] the [facility]. In the meantime I will hydrate the patient gently. We will give bronchodilators as needed. I will continue the patient's metered-dose inhalers. DVT prophylaxis with Lovenox will be placed supplemental oxygen will be given. Patient's encephalopathy probably related to medication. Continue supportive care. We will transfer back to skilled facility in the morning when improved or stable.
[2016-10-28] MEDS ORDERED: ALBUTEROL SULFATE 0.083% NEB 2.5 MG/3 ML AMPUL NEB PRN (18:53)
[2016-10-28] MEDS ORDERED: ENOXAPARIN SODIUM INJ 40 MG/0.4 ML DISP.SYRIN SUBCUT ONE (20:00)
[2016-10-28] MEDS: BUPROPION HCL 75 MG TABLET PO SCH (21:29)
[2016-10-28] MEDS: FLUTICASONE/SALMETEROL DISKUS 500-50 MCG/DOSE IH SCH (21:30)
[2016-10-28] MEDS: IPRATROPIUM/ALBUTEROL 120 PUFF/4 GM MDI IH SCH (23:11)
[2016-10-29 04:26] LABS: HEMATOCRIT 48.7 % (36.0-47.0); HEMOGLOBIN 16.5 g/dL (12.0-15.5); HGB HCT DIFFERENCE 0.8; MEAN CORPUSCULAR HEMOGLOBIN 29.8 pg (27.0-33.4); MEAN CORPUSCULAR HGB CONC 33.9 g/dL (32.0-36.0); MEAN CORPUSCULAR VOLUME 88 fl (80-97); RED BLOOD COUNT 5.53 10^6/uL (3.72-5.28); RED CELL DISTRIBUTION WIDTH 15.9 % (11.5-14.0); WHITE BLOOD COUNT 11.3 10^3/uL (4.0-10.5)
[2016-10-29 04:39] LABS: ANION GAP 12 (5-19); BLOOD UREA NITROGEN 6 mg/dL (7-20); CALCIUM 9.2 mg/dL (8.4-10.2); CARBON DIOXIDE 21 mmol/L (22-30); CHLORIDE 108 mmol/L (98-107); CREATININE RESULT 0.57 mg/dL (0.52-1.25); GLUCOSE 107 mg/dL (75-110); POTASSIUM 3.7 mmol/L (3.6-5.0); SODIUM 141.3 mmol/L (137-145)
[2016-10-29] MEDS: LANSOPRAZOLE 30 MG TAB.RAP.DR PO SCH (05:35)
[2016-10-29] MEDS: IPRATROPIUM/ALBUTEROL 120 PUFF/4 GM MDI IH SCH ×3 (05:35→17:48)
[2016-10-29] MEDS ORDERED: ONDANSETRON HCL INJ/PF 4 MG/2 ML SDV IV PRN (07:30)
[2016-10-29] MEDS: DOCUSATE SODIUM 100 MG CAPSULE PO SCH ×2 (09:19→17:11)
[2016-10-29] MEDS: BENZTROPINE MESYLATE 1 MG TABLET PO SCH (09:22)
[2016-10-29] MEDS: ENOXAPARIN SODIUM INJ 40 MG/0.4 ML DISP.SYRIN SUBCUT SCH (09:22)
[2016-10-29] MEDS: BUPROPION HCL 75 MG TABLET PO SCH ×2 (09:22→21:33)
[2016-10-29] MEDS: FLUTICASONE/SALMETEROL DISKUS 500-50 MCG/DOSE IH SCH ×2 (09:23→21:33)
[2016-10-29] MEDS ORDERED: (PENDING PHARMACY ID) (Lurasidone Hcl [Latuda] 60 MG) PO SCH ×2 (10:00→22:00)
[2016-10-29] MEDS ORDERED: (PENDING PHARMACY ID) (Benztropine Mesylate [Benztropine Mesylate 2 Mg Tablet] 2 MG) PO SCH (10:00)
[2016-10-29] MEDS ORDERED: CLONAZEPAM 1 MG TABLET PO PRN (11:27)
[2016-10-29] MEDS ORDERED: ESCITALOPRAM OXALATE 10 MG TABLET PO ONE (12:15)
[2016-10-29] MEDS: OXYCODONE HCL IR 5 MG TABLET PO SCH ×2 (12:42→17:47)
[2016-10-29] MEDS: TIZANIDINE HCL 4 MG TABLET PO SCH ×2 (14:05→17:48)
[2016-10-29] MEDS: GABAPENTIN 300 MG CAPSULE PO SCH ×2 (14:05→21:32)
--- NOTE | 2016-10-29 14:51 | PDOC PROGRESS REPORT ---
Subjective Progress Note for:: 10/29/16 Subjective:: The patient reportedly by staff restless and wanting to go home, still having bouts of confusion. No reported temperature spikes, nausea or vomiting, chills or fever. No shortness of breath reported as well. Patient reports being fine. Physical Exam Vital Signs: Temp Pulse Resp BP Pulse Ox 97.6 F 85 20 151/52 H 96 10/29/16 11:41 10/29/16 11:41 10/29/16 11:41 10/29/16 11:41 10/29/16 11:41 Intake & Output 10/28/16 10/29/16 10/30/16 06:59 06:59 06:59 Intake Total 1150 Output Total 950 Balance 200 Weight 90.8 kg General appearance: PRESENT: no acute distress, cooperative Head exam: PRESENT: normocephalic Eye exam: PRESENT: EOMI Mouth exam: PRESENT: moist, neck supple Neck exam: ABSENT: JVD Respiratory exam: PRESENT: clear to auscultation terra. ABSENT: rhonchi, wheezes Cardiovascular exam: PRESENT: RRR. ABSENT: gallop GI/Abdominal exam: PRESENT: hypoactive bowel sounds, soft. ABSENT: distended Extremities exam: ABSENT: pedal edema Neurological exam: PRESENT: alert, awake, oriented to situation Skin exam: PRESENT: dry, warm. ABSENT: cyanosis Results Laboratory Results: 10/29/16 04:10 10/29/16 04:10 10/29/16 10/29/16 10/29/16 04:10 04:10 04:10 WBC 11.3 H RBC 5.53 H Hgb 16.5 H Hct 48.7 H MCV 88 MCH 29.8 MCHC 33.9 RDW 15.9 H Plt Count 143 L Sodium 141.3 Potassium 3.7 Chloride 108 H Carbon Dioxide 21 L Anion Gap 12 BUN 6 L Creatinine 0.57 Est GFR ( Amer) > 60 Est GFR (Non-Af Amer) > 60 Glucose 107 Calcium 9.2 TSH 1.28 Impressions: Chest X-Ray 10/28/16 14:24 IMPRESSION: Chronic airspace disease with slight improvement since the prior study. Head CT 10/28/16 15:53 IMPRESSION: NORMAL BRAIN CT WITHOUT CONTRAST. Assessment & Plan - Diagnosis (1) Metabolic encephalopathy Is this a current diagnosis for this admission?: Yes (2) Chronic respiratory failure with hypoxia Is this a current diagnosis for this admission?: Yes (3) End stage COPD Is this a current diagnosis for this admission?: Yes (4) Pulmonary fibrosis Is this a current diagnosis for this admission?: Yes (5) Generalized anxiety disorder Is this a current diagnosis for this admission?: Yes (6) Situational depression Is this a current diagnosis for this admission?: Yes (7) Hyperlipidemia Qualifiers: Hyperlipidemia type: unspecified Qualified Code(s): E78.5 - Hyperlipidemia, unspecified Is this a current diagnosis for this admission?: Yes (8) Coronary artery disease Qualifiers: Coronary Disease-Associated Artery/Lesion type: [place] artery [place] vs. transplanted heart: [place] heart Associated angina: without angina Qualified Code(s): I25.10 - Atherosclerotic heart disease of [place] coronary artery without angina pectoris Is this a current diagnosis for this admission?: Yes (9) Gastroesophageal reflux disease Qualifiers: Esophagitis presence: without esophagitis Qualified Code(s): K21.9 - Gastro-esophageal reflux disease without esophagitis Is this a current diagnosis for this admission?: Yes - Time Time Spent with patient: 25-34 minutes - Plan Summary Plan Summary: I have discussed case with daughter as well as with The patient's sister. We will try to minimize medications however patient may exhibit agitation due to chronicity of intake of current regimen. Patient may need to be tapered slowly on an outpatient basis. Continue to follow cultures. Continue gentle hydration. I will resume the patient's home medications. I will keep the patient for 24 more hours and verify her hospice situation. Continue supportive care.
--- NOTE | 2016-10-29 16:10 | RADIOLOGY REPORT (SQ) ---
EXAM DESCRIPTION: KUB/ABDOMEN (SINGLE VIEW) COMPLETED DATE/TIME: 10/29/2016 3:46 pm REASON FOR STUDY: fecal impaction COMPARISON: 09/19/2012 NUMBER OF VIEWS: One view. TECHNIQUE: Supine radiographic image of the abdomen acquired. LIMITATIONS: None. FINDINGS: BOWEL GAS PATTERN: Abundant fecal material throughout nondilated colon. CALCIFICATIONS: No suspicious calcifications. SOFT TISSUES: No gross mass or suggestion of organomegaly. HARDWARE: Sacral fusion. IVC filter. Thoracic neurostimulator. Clips right upper and left lower qu adrant. BONES: No bone lesions or fracture. OTHER: No other significant finding. IMPRESSION: Fecal retention.
[2016-10-29] MEDS ORDERED: BUPROPION HCL 75 MG TABLET PO SCH (22:00)
[2016-10-30] MEDS: IPRATROPIUM/ALBUTEROL 120 PUFF/4 GM MDI IH SCH ×3 (00:32→12:34)
[2016-10-30] MEDS: OXYCODONE HCL IR 5 MG TABLET PO SCH ×3 (00:33→12:38)
[2016-10-30] MEDS: LANSOPRAZOLE 30 MG TAB.RAP.DR PO SCH (05:55)
[2016-10-30] MEDS: GABAPENTIN 300 MG CAPSULE PO SCH (05:55)
[2016-10-30] MEDS ORDERED: (PENDING PHARMACY ID) (Bupropion Hcl [Bupropion Xl] 150 MG) PO SCH (10:00)
[2016-10-30] MEDS ORDERED: (PENDING PHARMACY ID) (Benztropine Mesylate [Benztropine Mesylate 2 Mg Tablet] 2 MG) PO SCH (10:00)
[2016-10-30] MEDS ORDERED: ESCITALOPRAM OXALATE 10 MG TABLET PO SCH (10:00)
[2016-10-30] MEDS: ENOXAPARIN SODIUM INJ 40 MG/0.4 ML DISP.SYRIN SUBCUT SCH (10:38)
[2016-10-30] MEDS: DOCUSATE SODIUM 100 MG CAPSULE PO SCH (10:39)
[2016-10-30] MEDS: BUPROPION HCL 75 MG TABLET PO SCH (10:40)
[2016-10-30] MEDS: TIZANIDINE HCL 4 MG TABLET PO SCH (10:40)
[2016-10-30] MEDS: BENZTROPINE MESYLATE 1 MG TABLET PO SCH (10:41)
[2016-10-30] MEDS: FLUTICASONE/SALMETEROL DISKUS 500-50 MCG/DOSE IH SCH (10:42)
--- NOTE | 2016-10-30 11:33 | PDOC DISCHARGE SUMMARY ---
General - Admit/Disc Date/PCP Admission Date/Primary Care Provider: 10/28/16 17:39 BLAKE HALL, DO Discharge Date: 10/30/16 - Discharge Diagnosis (1) Metabolic encephalopathy Is this a current diagnosis for this admission?: Yes (2) Chronic respiratory failure with hypoxia Is this a current diagnosis for this admission?: Yes (3) End stage COPD Is this a current diagnosis for this admission?: Yes (4) Pulmonary fibrosis Is this a current diagnosis for this admission?: Yes (5) Generalized anxiety disorder Is this a current diagnosis for this admission?: Yes (6) Situational depression Is this a current diagnosis for this admission?: Yes (7) Hyperlipidemia Is this a current diagnosis for this admission?: Yes (8) Coronary artery disease Is this a current diagnosis for this admission?: Yes (9) Gastroesophageal reflux disease Is this a current diagnosis for this admission?: Yes - Additional Information Resuscitation Status: Do Not Resuscitate Discharge Diet: Cardiac - Low-fat low-salt Discharge Activity: Activity As Tolerated, Balance Activity w/Rest, Slowly Increase Activity Home Medications: Albuterol Sulfate [Proair HFA] 2 puff IH Q4 PRN 10/28/16 Benztropine Mesylate [Benztropine Mesylate 2 mg Tablet] 2 mg PO DAILY 10/28/16 Bupropion HCl [Bupropion Xl] 150 mg PO DAILY 10/28/16 Cholecalciferol (Vitamin D3) [Vitamin D3 2000 unit Tablet] 2,000 unit PO DAILY 10/28/16 Clonazepam [Klonopin 1 mg Tablet] 1 mg PO TIDP PRN 10/28/16 Gabapentin [Neurontin 300 mg Capsule] 300 mg PO Q8 10/28/16 Ivermectin [Stromectol 3 mg Tablet] 21 mg PO [id number] 10/28/16 Lurasidone HCl [Latuda] 60 mg PO Q12 10/28/16 Omeprazole 20 mg PO DAILY 10/28/16 Potassium Chloride [Klor-Con M10] 10 meq PO DAILY 10/28/16 Simvastatin [Zocor 10 mg Tablet] 10 mg PO DAILY 10/28/16 Tizanidine HCl [Zanaflex 4 mg Tablet] 4 mg PO TID 10/28/16 Albuterol Sulfate [Ventolin 0.083% Neb 2.5 mg/3 mL Ampul] 2.5 mg NEB RTQ2HP PRN vial.neb 10/30/16 Bupropion HCl [Wellbutrin 75 mg Tablet] 75 mg PO Q12 tablet 10/30/16 Docusate Sodium [Colace 100 mg Capsule] 100 mg PO BID capsule 10/30/16 Fluticasone/Salmeterol [Advair 500-50 Diskus 14 Dose/Diskus] 1 inh IH Q12 inhaler 10/30/16 Ipratropium/Albuterol Sulfate [Combivent Respimat 4 gm Mdi] 1 puff IH Q6 aer.w.adap 10/30/16 Lurasidone HCl [Latuda] 60 mg PO .Q12 10/30/16 Oxycodone HCl 7.5 mg PO Q6 #20 tablet 10/30/16 Polyethylene Glycol 3350 [Miralax Powder 17 gm/Packet] 1 packet PO DAILY #1 pkg 10/30/16 Trazodone HCl [Desyrel] 150 mg PO HSP PRN #0 10/30/16 History of Present Illness Patient complains of: Confusion and altered mental status History of Present Illness: SUKHWINDER ARTIS is a 56 year old female, with history of chronic respiratory failure, pulmonary fibrosis, end-stage COPD, on hospice apparently was sent to the hospital from the residential because of confusion and alteration in mental status. Family is at bedside who stated that the patient started having some behavioral changes for the past few days. She noted that when she received a call from the residential about the situation. Patient had a fall but no significant injuries sustained. It was reported earlier that the patient is uncooperative and was given a medication by the nursing staff. Again it is unclear what medication was given according to the family. Daughter receive a call from hospice nurse who eventually sent the patient to the emergency room for evaluation of confusion. In the emergency room the patient shows mildly elevated WBC but no fever and likewise no acute changes of the chest x-ray was noted. Urinalysis was likewise negative. She had a history of polypharmacy and the daughter stated that when the patient was admitted to rehab in the past medications were cut down and the patient did well. She returned back to the residential and was resumed on all her medications which the patient daughter thinks it is too much. The patient apparently has been in hospice for almost a year. When the patient was asked she denies any specific complaints at all. She is a DO NOT RESUSCITATE. She refused to be hospitalized however she agreed to stay overnight with her daughter's persistence. The patient was then admitted. Emergency room physician reports wheezing earlier and patient was given nebulizer and it has resolved. Hospital Course Hospital Course: The patient was admitted to observation. The patient was gently hydrated. Chest x-ray did not reveal any acute infiltrate. Urine culture was done and was negative. Blood cultures remain negative so far. KUB was performed showing fecal retention. Patient's mildly elevated WBC likely related to obstipation and impaction. Patient initially had overflow diarrhea but eventually resolved and had a good bowel movement reportedly yesterday. Patient was placed on stool softeners and likewise was placed on MiraLAX on discharge. Patient however did not show any significant confusion nor alteration in mental status but did reveal likely withdrawal symptoms with jitteriness and agitation. Her home medications were then resume. At this point hospice was consulted and verified whether there is still actively involved with patient's care. Spoke with family again who reportedly wants to resume home hospice on discharge. The patient remained afebrile while in the hospital. WBC was trending down. The rest of the hospital stays unremarkable. Family eventually agreed to bring back the patient to [facility] under hospice care. Patient all throughout refused to stay in the hospital and wants to go back to [facility]. She likewise refused any further workups to be done as well. Family has been aware of her refusal and dislike being in the hospital. Physical Exam Vital Signs: Temp Pulse Resp BP Pulse Ox 98.4 F 66 20 124/54 L 96 10/30/16 08:00 10/30/16 08:00 10/30/16 08:00 10/30/16 08:00 10/30/16 08:00 Intake & Output 10/29/16 10/30/16 10/31/16 06:59 06:59 06:59 Intake Total 1150 1725 Output Total 950 250 Balance 200 1475 Weight 90.8 kg 92.5 kg General appearance: PRESENT: no acute distress, mild distress, other - Nasal cannula oxygen Head exam: PRESENT: normocephalic Eye exam: PRESENT: EOMI Mouth exam: PRESENT: moist, neck supple Neck exam: ABSENT: JVD Respiratory exam: PRESENT: rhonchi - Bilateral. ABSENT: wheezes Cardiovascular exam: PRESENT: RRR. ABSENT: gallop GI/Abdominal exam: PRESENT: soft. ABSENT: distended Extremities exam: ABSENT: pedal edema Neurological exam: PRESENT: alert, awake, oriented to person, oriented to place , oriented to situation Psychiatric exam: ABSENT: agitated Focused psych exam: ABSENT: restlessness Skin exam: PRESENT: dry, warm. ABSENT: cyanosis Results Laboratory Results: 10/29/16 04:10 10/29/16 04:10 Impressions: Chest X-Ray 10/28/16 14:24 IMPRESSION: Chronic airspace disease with slight improvement since the prior study. Head CT 10/28/16 15:53 IMPRESSION: NORMAL BRAIN CT WITHOUT CONTRAST. KUB X-Ray 10/29/16 00:00 IMPRESSION: Fecal retention. Qualifiers PATEINT BEING DISCHARGED WITH ANY OF THE FOLLOWING DIAGNOSIS?: No Plan Discharge Plan: Follow-up with primary care physician in a week. Patient will be followed by hospice for continued hospice care outpatient. Time Spent: Less than 30 Minutes
[2016-10-30 12:47] VITALS: BP 138/68
[2016-11-09] MEDS ORDERED: IVERMECTIN 3 MG TABLET PO SCH (10:00)
== END 2016-10-30 13:46 | disposition home health service (06) ==
LOC: ER 13:58 → EH 17:39 → INTOOBSV 17:39 → 5 20:15
DX: G93.41 Metabolic encephalopathy (principal); J96.11 Chronic respiratory failure with hypoxia; J44.9 Chronic obstructive pulmonary disease, unspecified; J84.10 Pulmonary fibrosis, unspecified; F41.1 Generalized anxiety disorder; F43.21 Adjustment disorder with depressed mood; E78.5 Hyperlipidemia, unspecified; I25.10 Atherosclerotic heart disease of native coronary artery without angina pectoris; K21.9 Gastro-esophageal reflux disease without esophagitis; I10 Essential (primary) hypertension; Z66 Do not resuscitate; Z87.891 Personal history of nicotine dependence
CPT/HCPCS: 93005; 94640; 99285; 96360; 51701; 36415 ×2; 87040; 87086; 80307 ×2; 82550; 83690; 84443; 85025; 85027; 80048; 80053; 81001; 84484; 82803; 83605; 71010; 74000; 70450; 93010; A9270 ×18; J1650 ×2; J0696; J3490 ×3; J2405; J7030 ×2; G0378

== ENCOUNTER → 2017-04-12 | Outpatient (CLI) | payer MEDICARE, MEDICAID ==
[2017-04-12 10:17] LABS: ABSOLUTE BASOPHILS # (AUTO) 0.1 10^3/uL (0.0-0.2); ABSOLUTE EOSINOPHILS # (AUTO) 0.2 10^3/uL (0.0-0.6); ABSOLUTE LYMPHOCYTES (AUTO) 2.2 10^3/uL (0.5-4.7); ABSOLUTE MONOCYTES (AUTO) 0.5 10^3/uL (0.1-1.4); BASOPHILS % (AUTO) 0.7 % (0-2); EOSINOPHILS % (AUTO) 2.1 % (0-6); HEMATOCRIT 44.2 % (36.0-47.0); LYMPHOCYTES % (AUTO) 24.8 % (13-45); MEAN CORPUSCULAR VOLUME 88 fl (80-97); PLATELET COUNT 212 10^3/uL (150-450); RED BLOOD COUNT 5.01 10^6/uL (3.72-5.28); RED CELL DISTRIBUTION WIDTH 15.8 % (11.5-14.0); SEGMENTED NEUTROPHILS % (AUTO) 66.4 % (42-78); TOTAL CELLS COUNTED % (AUTO) 100 %
[2017-04-12 10:33] LABS: ANION GAP 11 (5-19); BLOOD UREA NITROGEN 8 mg/dL (7-20); CALCIUM 9.5 mg/dL (8.4-10.2); CARBON DIOXIDE 28 mmol/L (22-30); CHLORIDE 99 mmol/L (98-107); GLUCOSE 89 mg/dL (75-110); POTASSIUM 4.4 mmol/L (3.6-5.0); SODIUM 138.2 mmol/L (137-145)
[2017-04-13 12:21] LABS: ALANINE AMINOTRANSFERASE 15 U/L (9-52); ALKALINE PHOSPHATASE 92 U/L (38-126); ASPARTATE AMINO TRANSFERASE 7 U/L (14-36); BILIRUBIN,DIRECT 0.3 mg/dL (0.0-0.4); BILIRUBIN,TOTAL 0.3 mg/dL (0.2-1.3); TOTAL PROTEIN 7.4 g/dL (6.3-8.2)
[2017-04-13 12:38] LABS: BLOOD UREA NITROGEN 8 mg/dL (7-20); CALCIUM 9.5 mg/dL (8.4-10.2); GLUCOSE 89 mg/dL (75-110); POTASSIUM 4.4 mmol/L (3.6-5.0)
[2017-04-13 12:39] LABS: ANION GAP 11 (5-19); CARBON DIOXIDE 28 mmol/L (22-30); CHLORIDE 99 mmol/L (98-107); SODIUM 138.2 mmol/L (137-145)
[2017-04-14 08:34] LABS: MAGNESIUM 1.4 mg/dL (1.6-2.3); PHOSPHORUS 4.9 mg/dL (2.5-4.5)
== END ==
LOC: OD 09:10
PROVIDERS: ATTEND Nurse Practitioner Acute Care
DX: D64.9 Anemia, unspecified (principal); N18.9 Chronic kidney disease, unspecified; E03.9 Hypothyroidism, unspecified; E11.42 Type 2 diabetes mellitus with diabetic polyneuropathy; E61.2 Magnesium deficiency
CPT/HCPCS: 36415; 80048; 80053; 83036; 83735; 84100; 84443; 85025

== ENCOUNTER → 2017-04-14 | Outpatient (CLI) | payer MEDICARE, MEDICAID ==
--- NOTE | 2017-04-14 16:53 | RADIOLOGY REPORT (SQ) ---
EXAM DESCRIPTION: CT CHEST WITHOUT COMPLETED DATE/TIME: 04/14/2017 4:21 pm REASON FOR STUDY: R06.02 SHORTNESS OF BREATH R06.02 SHORTNESS OF BREATH COMPARISON: 01/29/2016 TECHNIQUE: CT scan performed of the chest without intravenous contrast. Images reviewed with lung, soft tissue and bone windows. Reconstructed coronal and sagittal MPR images reviewed. All images st ored on PACS. All CT scanners at this facility use dose modulation, iterative reconstruction, and/or weight based d osing when appropriate to reduce radiation dose to as low as reasonably achievable (ALARA). [facility]: Dose Right [facility]: CareDose [facility]: Dose Right [facility]: Teradose 4D [facility]: Smart [place] RADIATION DOSE: CT Rad equipment meets quality standard of care and radiation dose reduction techniq ues were employed. CTDIvol: 9.6 mGy. DLP: 345 mGy-cm. mGy. LIMITATIONS: No technical limitations. FINDINGS: LUNGS AND PLEURA: There is bilateral pulmonary fibrosis which has progressed slightly sinc e 2015. Mild central bronchiectasis is unchanged. Small subpleural blebs remain. No consolidation or effusions. HILAR AND MEDIASTINAL STRUCTURES: No identified masses or abnormal nodes. No obvious aneurysm. HEART AND VASCULAR STRUCTURES: No aneurysm. No pericardial effusion. UPPER ABDOMEN: No significant findings. Limited exam. THYROID AND OTHER SOFT TISSUES: No masses. No adenopathy. BONES: No significant finding. HARDWARE: None in the chest. OTHER: No other significant findings. IMPRESSION: Pulmonary fibrosis which has slightly progressed when compared to prior study. No acute consolidation or edema. TECHNICAL DOCUMENTATION: JOB ID: [id number] Quality ID # [id number]: Final reports with documentation of one or more dose reduction techniques (e.g., Au tomated exposure control, adjustment of the mA and/or kV according to patient size, use of iterative reconstruction technique) 2010 [employer]- All Rights Reserved
== END ==
LOC: RAD 14:39
PROVIDERS: ATTEND Internal Medicine Critical Care Medicine
DX: J84.10 Pulmonary fibrosis, unspecified (principal); R06.02 Shortness of breath
CPT/HCPCS: 71250

== ENCOUNTER 2017-04-19 16:14 | Emergency (ER) | payer OTHER, MEDICARE, MEDICAID ==
[2017-04-19] MEDS ORDERED: IPRATROPIUM/ALBUTEROL 0.5-2.5 MG/3 ML AMPUL NEB ONE (17:07)
[2017-04-19] MEDS ORDERED: METHYLPREDNISOLONE INJ 125 MG/2 ML SDV IV ONE (17:10)
--- NOTE | 2017-04-19 17:19 | ER Document Report ---
ED Respiratory Problem - General Mode of Arrival: Medic Information source: Patient TRAVEL OUTSIDE OF THE [place] IN LAST 30 DAYS: No <BRIANNA LONG - Last Filed: 04/19/17 19:27> <DAMIEN SOSA V - Last Filed: 04/19/17 21:44> - General Stated Complaint: DIFFICULTY BREATHING Time Seen by Provider: 04/19/17 16:54 - HPI Notes: 56 year old female, with history of chronic respiratory failure, pulmonary fibrosis, end-stage COPD with attached DNR paper, chronically on 4 L nasal cannula per patient, presents with shortness of breath per written report. Patient is very somnolent seems somewhat confused and very difficult to get a complete history and requires frequent redirection. Initially states that she was upset as they delayed her getting her food. Also complained of pain in her epigastrium when she eats then finally states that she believes she is here because of shortness of breath after I help direct her somewhat. Per report this apparently started when she was dining. She does not report any new cough or fever. She is currently also has by report. (BRIANNA LONG) - Related Data Allergies/Adverse Reactions: hydromorphone HCl [From Dilaudid] Allergy (Verified 10/28/16 14:55) morphine [Morphine] Allergy (Verified 10/28/16 14:55) Past Medical History - Social History Smoking Status: Unknown if Ever Smoked Family History: Reviewed & Not Pertinent, CVA, DM, Hypertension, Other - parkinson's - Past Medical History Cardiac Medical History: Reports: Hx Congestive Heart Failure, Hx Coronary Artery Disease, Hx Hypertension Pulmonary Medical History: Reports: Hx Bronchitis - chronic, Hx COPD, Hx Respiratory Failure - Chronic Renal/ Medical History: Denies: Hx Peritoneal Dialysis Musculoskeltal Medical History: Reports Hx Fibromyalgia Psychiatric Medical History: Reports: Hx Anxiety, Hx Bipolar Disorder, Hx Depression Past Surgical History: Reports: Hx Breast Surgery - bilat lumpectomy, Hx Cardiac Catheterization - 07/19, no stents, Hx Cholecystectomy, Hx Orthopedic Surgery - back x 2, left knee, Hx Tubal Ligation. Denies: Hx Hysterectomy - Immunizations Hx Diphtheria, Pertussis, Tetanus Vaccination: Yes - UTD Hx Pneumococcal Vaccination: 01/03/15 <BRIANNA LONG - Last Filed: 04/19/17 19:27> Review of Systems - Review of Systems -: Yes All other systems reviewed and negative - Some limitations poor recall <BRIANNA LONG - Last Filed: 04/19/17 19:27> Physical Exam <BRIANNA LONG - Last Filed: 04/19/17 19:27> <DAMIEN SOSA V - Last Filed: 04/19/17 21:44> - Vital signs Vitals: Pulse Ox 93 04/19/17 16:49 91% 3 L nasal cannula (BRIANNA LONG) - Notes Notes: Physical Exam: GENERAL: VS as per nursing doc. nontoxic appearing in no distress. Very somnolent but awakens to tactile stimuli HEAD: Atraumatic, normocephalic. EYES: Pupils equal round and reactive to light at 4 mm, extraocular movements intact, sclera anicteric, no conjunctival injection or discharge. ENT: Nares patent, oropharynx clear without exudates. Very dry mucous membranes. NECK: Normal range of motion, supple without lymphadenopathy. No JVD. No Carotid Bruits. LUNGS: Breath sounds decreased significantly bilaterally with some scattered crackles noted HEART: Normal S1S2. Regular rate and rhythm without murmurs. Equal peripheral pulses. ABDOMEN: Soft, non-tender. No Shetty sign and no right upper quadrant tenderness EXTREMITIES: Normal range of motion. No calf tenderness. Negative Homans. No edema. NEUROLOGICAL: Cranial nerves grossly intact. Normal speech. Normal sensory and motor exams with the exception of being generally weak. No gross cerebellar abnormalities. PSYCH: Affect somewhat flat, somnolent, oriented 2 somewhat off on date. Requires redirection verbally. SKIN: Warm, dry, no cyanosis, no splinter hemorrhages. Cap refill < 2 sec. (BRIANNA LONG) Course - EKG Interpretation by Me EKG shows normal: Sinus rhythm Rate: Bradycardia - Heart rate 52, nonspecific ST changes. RSR prime noted probably consistent with incomplete right bundle branch block. EKG does appear comparable to October 28, 2016 EKG. - Transfer of Care Care transferred to following provider: Dr. Coronado <ETHANBRIANNA Florence - Last Filed: 04/19/17 19:27> - Laboratory Result Diagrams: 04/19/17 19:32 04/19/17 19:32 - Diagnostic Test Radiology reviewed: Image reviewed <DAMIEN SOSA V - Last Filed: 04/19/17 21:44> - Re-evaluation Re-evalutation: 04/19/17 20:39 Patient sign out to me from previous provider for final disposition Patient is here with history of interstitial lung disease who is on 4 L of oxygen at home from [facility] Patient is awaiting CT scan to rule out any intracranial abnormalities and to make sure that patient does not have any central causes of her somnolence Also awaiting ABG to make sure patient does not have any hypercapnia If patient has normal imaging, no hypoxia as well as normal gas, anticipate discharge back to the custodial Reassessment 9:40 PM Patient has normal CT scan, no evidence of intracranial hemorrhage, malignancy or hematoma ABG with no evidence of hypercapnia I have discussed results with patient, she is awake and oriented, she understands the disposition planning and willing to be discharged back to her custodial facility Discharge home (DAMIEN SOSA V) - Vital Signs Vital signs: Temp Pulse Resp BP Pulse Ox 97.9 F 18 93/67 L 94 04/19/17 16:53 04/19/17 19:26 04/19/17 17:01 04/19/17 20:03 - Laboratory Laboratory results interpreted by me: 04/19/17 04/19/17 04/19/17 19:09 19:32 19:32 RDW 15.5 H ABG pO2 56.4 L ABG HCO3 26.3 H ABG Total CO2 27.7 H ABG O2 Saturation 89.4 L Sodium 136.7 L AST 7 L Urine Urobilinogen Ur Leukocyte Esterase 04/19/17 20:42 RDW ABG pO2 ABG HCO3 ABG Total CO2 ABG O2 Saturation Sodium AST Urine Urobilinogen 2.0 H Ur Leukocyte Esterase TRACE H - Diagnostic Test Radiology results interpreted by me: 04/19/17 21:41 CT scan of the brain without any intracranial abnormalities (DAMIEN SOSA V) - Transfer of Care Notes: 04/19/17 19:27 Care transferred with ABD and CT Pending (BRIANNA LONG) Discharge <BRIANNA LONG - Last Filed: 04/19/17 19:27> <DAMIEN SOSA V - Last Filed: 04/19/17 21:44> - Discharge Clinical Impression: SOB (shortness of breath), ILD (interstitial lung disease) Condition: Stable Disposition: HOME-ASSISTED LIVING Instructions: Dyspnea, Nonspecific ([facility]) Additional Instructions: Please send patient back if she has worsening hypoxia on her normal 4 L of oxygen, worsening shortness of breath, fevers or chills, nausea or vomiting
--- NOTE | 2017-04-19 17:25 | EKG REPORT ---
SEVERITY:- ABNORMAL ECG - SINUS RHYTHM PROBABLE RIGHT VENTRICULAR HYPERTROPHY Borderline Q waves L1, AVL, V6 leads, non-specific T wave inversion inferior leads : Confirmed by: Bernadette Schmitz 19-Apr-2017 17:24:26
[2017-04-19 18:01] LABS: A TYPE INFLUENZA AG NEGATIVE (NEGATIVE); B INFLUENZA AG NEGATIVE (NEGATIVE)
[2017-04-19] MEDS ORDERED: NORMAL SALINE 1000 ML 1,000 ML IV ONE (18:09)
--- NOTE | 2017-04-19 18:12 | RADIOLOGY REPORT (SQ) ---
EXAM DESCRIPTION: CHEST SINGLE VIEW COMPLETED DATE/TIME: 04/19/2017 6:03 pm REASON FOR STUDY: Dyspnea COMPARISON: CT from 04/14/2017 EXAM PARAMETERS: NUMBER OF VIEWS: One view. TECHNIQUE: Single frontal radiographic view of the chest acquired. RADIATION DOSE: NA LIMITATIONS: None. FINDINGS: LUNGS AND PLEURA: Stable severe pulmonary fibrosis peer No new opacities, masses or pneumo thorax. No pleural effusion. MEDIASTINUM AND HILAR STRUCTURES: No masses. Contour normal. HEART AND VASCULAR STRUCTURES: Heart stable in size. Normal vasculature. BONES: No acute findings. HARDWARE: None in the chest. OTHER: No other significant finding. IMPRESSION: NO ACUTE RADIOGRAPHIC FINDING IN THE CHEST. NO SIGNIFICANT CHANGE COMPARED TO CT PERFOR MED 5 DAYS AGO. TECHNICAL DOCUMENTATION: JOB ID: [id number] [employer]- All Rights Reserved
[2017-04-19 19:51] LABS: ABSOLUTE BASOPHILS # (AUTO) 0.1 10^3/uL (0.0-0.2); ABSOLUTE EOSINOPHILS # (AUTO) 0.2 10^3/uL (0.0-0.6); ABSOLUTE LYMPHOCYTES (AUTO) 2.5 10^3/uL (0.5-4.7); ABSOLUTE MONOCYTES (AUTO) 0.6 10^3/uL (0.1-1.4); ABSOLUTE NEUT (AUTO) 4.8 10^3/uL (1.7-8.2); BASOPHILS % (AUTO) 0.6 % (0-2); EOSINOPHILS % (AUTO) 2.4 % (0-6); HEMATOCRIT 43.3 % (36.0-47.0); HEMOGLOBIN 14.7 g/dL (12.0-15.5); LYMPHOCYTES % (AUTO) 30.8 % (13-45); MEAN CORPUSCULAR HGB CONC 33.9 g/dL (32.0-36.0); MEAN CORPUSCULAR VOLUME 88 fl (80-97); MONOCYTES % (AUTO) 6.9 % (3-13); PLATELET COUNT 194 10^3/uL (150-450); RED BLOOD COUNT 4.89 10^6/uL (3.72-5.28); RED CELL DISTRIBUTION WIDTH 15.5 % (11.5-14.0); SEGMENTED NEUTROPHILS % (AUTO) 59.3 % (42-78); TOTAL CELLS COUNTED % (AUTO) 100 %; WHITE BLOOD COUNT 8.1 10^3/uL (4.0-10.5)
--- NOTE | 2017-04-19 19:51 | RADIOLOGY REPORT (SQ) ---
EXAM DESCRIPTION: CT HEAD WITHOUT COMPLETED DATE/TIME: 04/19/2017 7:42 pm REASON FOR STUDY: AMS COMPARISON: 10/28/2016 TECHNIQUE: Axial images acquired through the brain without intravenous contrast. Images reviewed wi th bone, brain and subdural windows. Images stored on PACS. All CT scanners at this facility use dose modulation, iterative reconstruction, and/or weight based d osing when appropriate to reduce radiation dose to as low as reasonably achievable (ALARA). [facility]: Dose Right [facility]: CareDose [facility]: Dose Right [facility]: Teradose 4D [facility]: [employer] RADIATION DOSE: CT Rad equipment meets quality standard of care and radiation dose reduction techniq ues were employed. CTDIvol: 64.6 mGy. DLP: 1034 mGy-cm. mGy. LIMITATIONS: None. FINDINGS: VENTRICLES: Normal size and contour. CEREBRUM: No masses. No hemorrhage. No midline shift. No evidence for acute infarction. Normal gra y/white matter differentiation. No areas of low density in the white matter. CEREBELLUM: No masses. No hemorrhage. No alteration of density. No evidence for acute infarction. EXTRAAXIAL SPACES: No fluid collections. No masses. ORBITS AND GLOBE: No intra- or extraconal masses. Normal contour of globe without masses. CALVARIUM: No fracture. PARANASAL SINUSES: No fluid or mucosal thickening. SOFT TISSUES: No mass or hematoma. OTHER: No other significant finding. IMPRESSION: NO ACUTE INTRACRANIAL IMAGING FINDINGS.NO SIGNIFICANT CHANGE FROM PRIOR STUDY. EVIDENCE OF ACUTE STROKE: NO. COMMENT: Quality ID # [id number]: Final reports with documentation of one or more dose reduction techniques (e.g., Automated exposure control, adjustment of the mA and/or kV according to patient size, use of iterative reconstruction technique) TECHNICAL DOCUMENTATION: JOB ID: [id number]- All Rights Reserved
[2017-04-19 19:58] LABS: INTERNATIONAL RATION (INR) 0.99; PROTHROMBIN TIME 13.8 SEC (11.4-15.4)
[2017-04-19 20:01] LABS: D-DIMER 0.37 ug/mL (0.00-0.50)
[2017-04-19 20:11] LABS: ALANINE AMINOTRANSFERASE 19 U/L (9-52); ALBUMIN 3.8 g/dL (3.5-5.0); ALKALINE PHOSPHATASE 70 U/L (38-126); ANION GAP 9 (5-19); ASPARTATE AMINO TRANSFERASE 7 U/L (14-36); BILIRUBIN,DIRECT 0.3 mg/dL (0.0-0.4); BILIRUBIN,TOTAL 0.6 mg/dL (0.2-1.3); BLOOD UREA NITROGEN 12 mg/dL (7-20); CALCIUM 9.5 mg/dL (8.4-10.2); CARBON DIOXIDE 28 mmol/L (22-30); CHLORIDE 100 mmol/L (98-107); GLUCOSE 87 mg/dL (75-110); POTASSIUM 4.7 mmol/L (3.6-5.0); SODIUM 136.7 mmol/L (137-145)
[2017-04-19 20:23] LABS: NT PRO BNP 369 pg/mL (5-900)
[2017-04-19 20:24] LABS: TROPONIN I < 0.012 ng/mL
[2017-04-19 20:33] LABS: ARTERIAL BLOOD BASE EXCESS 1.3 mmol/L; ARTERIAL BLOOD HCO3 26.3 mmol/L (20-26); ARTERIAL BLOOD O2 SATURATION 89.4 % (94-98); ARTERIAL BLOOD PCO2 43.2 mmHg (35-45); ARTERIAL BLOOD PO2 56.4 mmHg (80-100); ARTERIAL BLOOD TOTAL CO2 27.7 mmol/L (21-25)
[2017-04-19 20:34] LABS: ARTERIAL BLOOD FIO2 4L
[2017-04-19 20:56] LABS: APPEARANCE,URINE CLEAR; BILIRUBIN,URINE NEGATIVE (NEGATIVE); CALCIUM OXALATE CRYSTALS,URINE RARE /HPF; COLOR,URINE YELLOW; GLUCOSE, URINE NEGATIVE (NEGATIVE); KETONES,URINE NEGATIVE (NEGATIVE); LEUKOCYTE ESTERASE,URINE TRACE (NEGATIVE); NITRITE,URINE NEGATIVE (NEGATIVE); PROTEIN,URINE NEGATIVE (NEGATIVE); URINE SPECIFIC GRAVITY 1.005
[2017-04-20] MEDS ORDERED: GABAPENTIN 300 MG CAPSULE PO ONE (01:12)
[2017-04-20 08:15] VITALS: BP 131/87
== END 2017-04-20 08:02 | disposition home health service (06) ==
LOC: ER 16:14
DX: J84.10 Pulmonary fibrosis, unspecified (principal); J44.9 Chronic obstructive pulmonary disease, unspecified; J96.10 Chronic respiratory failure, unspecified whether with hypoxia or hypercapnia; Z99.81 Dependence on supplemental oxygen; Z66 Do not resuscitate; R40.0 Somnolence; Z88.5 Allergy status to narcotic agent; I25.10 Atherosclerotic heart disease of native coronary artery without angina pectoris; I10 Essential (primary) hypertension
CPT/HCPCS: 93005; 94640; 99285; 96361; 96374; 36415; 82803; 85025; 85610; 80053; 81001; 84484; 85379; 87804; 83880; 71045; 70450; 93010; J2930; J7030; J7620

== ENCOUNTER 2017-06-14 16:44 | Inpatient (IN) | payer MEDICARE, MEDICAID ==
[2017-06-14] MEDS ORDERED: METHYLPREDNISOLONE INJ 125 MG/2 ML SDV IV ONE (16:48)
[2017-06-14] MEDS ORDERED: NORMAL SALINE 1000 ML 1,000 ML IV ONE (16:48)
[2017-06-14] MEDS ORDERED: IPRATROPIUM/ALBUTEROL 0.5-2.5 MG/3 ML AMPUL NEB ONE ×2 (16:48→20:25)
--- NOTE | 2017-06-14 16:52 | ER Document Report ---
ED General - General Mode of Arrival: Medic Information source: Emergency Med Personnel TRAVEL OUTSIDE OF THE [place] IN LAST 30 DAYS: No <POLLO MAJANO - Last Filed: 06/14/17 21:02> <EARLE SIMON - Last Filed: 06/14/17 22:45> - General Stated Complaint: UNRESPONSIVE Time Seen by Provider: 06/14/17 16:47 Notes: Patient is a 57-year-old female with a history of COPD who is also DNR was sent to the emergency department via EMS from [facility] due difficulty breathing. EMS states when they arrived to the scene the patient was slumped over in her chair stating she had a shot of Klonopin which made her sleepy. EMS further states that the patient became only unresponsive on the way to the emergency department. EMS also states that the patient is hypotensive and the patient denied any pain before she became unresponsive. EMS is that the patient fell yesterday and hit her head although she refused any care. (POLLO MAJANO) - Related Data Allergies/Adverse Reactions: hydromorphone HCl [From Dilaudid] Allergy (Verified 10/28/16 14:55) morphine [Morphine] Allergy (Verified 10/28/16 14:55) Past Medical History - General Information source: Emergency Med Personnel Cannot obtain history due to: Altered mental status - Social History Smoking Status: Unknown if Ever Smoked Family History: Reviewed & Not Pertinent, CVA, DM, Hypertension, Other - parkinson's - Past Medical History Cardiac Medical History: Reports: Hx Congestive Heart Failure, Hx Coronary Artery Disease, Hx Hypertension Pulmonary Medical History: Reports: Hx Bronchitis - chronic, Hx COPD, Hx Respiratory Failure - Chronic Musculoskeltal Medical History: Reports Hx Fibromyalgia Psychiatric Medical History: Reports: Hx Anxiety, Hx Bipolar Disorder, Hx Depression Past Surgical History: Reports: Hx Breast Surgery - bilat lumpectomy, Hx Cardiac Catheterization - 07/19, no stents, Hx Cholecystectomy, Hx Orthopedic Surgery - back x 2, left knee, Hx Tubal Ligation - Immunizations Hx Diphtheria, Pertussis, Tetanus Vaccination: Yes - UTD Hx Pneumococcal Vaccination: 01/03/15 <POLLO MAJANO - Last Filed: 06/14/17 21:02> Review of Systems - Review of Systems -: Yes ROS unobtainable due to patient's medical condition <POLLO MAJANO - Last Filed: 06/14/17 21:02> Physical Exam <POLLO MAJANO - Last Filed: 06/14/17 21:02> <EARLE SIMON - Last Filed: 06/14/17 22:45> - Vital signs Vitals: Resp Pulse Ox 18 97 06/14/17 16:49 06/14/17 16:49 - Notes Notes: GENERAL: Unresponsive. Hypotensive. HEAD: Normocephalic, atraumatic. EYES: Pupils equal, round, and reactive to light. Extraocular movements intact. ENT: Oral mucosa moist, tongue midline. NECK: Full range of motion. Supple. Trachea midline. LUNGS: Hypoxic, tachpneic. Clear to auscultation bilaterally, no wheezes, rales , or rhonchi. No respiratory distress. HEART: Regular rate and rhythm. No murmurs, gallops, or rubs. ABDOMEN: Soft, non-tender. Non-distended. Bowel sounds present in all 4 quadrants. EXTREMITIES: Moves all 4 extremities spontaneously. NEUROLOGICAL: GCS 3. PSYCH: Unresponsive. SKIN: Warm, dry, normal turgor. No rashes or lesions noted. (POLLO MAJANO) Course - Laboratory Result Diagrams: 06/14/17 16:52 06/14/17 16:52 <POLLO MAJANO - Last Filed: 06/14/17 21:02> - Laboratory Result Diagrams: 06/14/17 16:52 06/14/17 16:52 - Diagnostic Test Radiology reviewed: Reports reviewed - EKG Interpretation by Nc EKG shows normal: Sinus rhythm Rate: Normal <EARLE SIMON - Last Filed: 06/14/17 22:45> - Re-evaluation Re-evalutation: 06/14/17 20:23 Consulted father and daughter, both confirmed the patient is DNR and does not want any interventions. (POLLO MAJANO) 06/14/17 22:35 Patient is a 57-year-old female with a history of COPD and pulmonary fibrosis who presents with altered mental status, hypoxia, and hypotension. Patient had a similar presentation in October. Patient has responded well to fluids and BiPAP. She is DNR/DNI. This is been confirmed with family. Initially spoke with father who stated that the patient also did not want any interventions. Daughter initially stated the patient did not want any interventions and then said unless she really needed them. They are dealing with another family member who is very sick and called me back after that person was stabilized. Patient has a troponin of 0.1. This is likely from the events prior to arrival as the troponin is now downtrending after almost 4 hours. Family has told me that the patient would not be able to undergo sedation because it almost killed for the last time. I have explained that in order to do a stent the patient would need to be sedated which the family does not want her to do. I have also called [facility] and discussed the patient with them. At this time, the patient would not have any intervention and they do not feel that she needs to be transferred. Patient has not had any complaints of chest pain. She is improved after fluids and BiPAP. I do not think that the patient warrants transfer at this time is she would not be able to undergo any procedure that would warrant sedation. She remains DNR/DNI. Family does state that the patient would not be able to undergo any sedation. She will be kept here. She has been discussed with the hospitalist. Stable at time of admission (EARLE SIMON) - Vital Signs Vital signs: Temp Pulse Resp BP Pulse Ox 27 H 116/45 L 98 06/14/17 22:21 06/14/17 22:21 06/14/17 22:21 - Laboratory Laboratory results interpreted by me: 06/14/17 06/14/17 06/14/17 16:52 16:52 16:52 WBC 11.3 H RDW 16.3 H VBG pH 7.25 L Sodium 127.6 L Potassium 5.1 H Chloride 95 L Est GFR ( Amer) 59 L Est GFR (Non-Af Amer) 49 L Glucose 113 H Direct Bilirubin 0.6 H ALT 63 H Urine Urobilinogen Salicylates Acetaminophen 06/14/17 06/14/17 16:52 17:45 WBC RDW VBG pH Sodium Potassium Chloride Est GFR ( Amer) Est GFR (Non-Af Amer) Glucose Direct Bilirubin ALT Urine Urobilinogen 4.0 H Salicylates < 1.0 L Acetaminophen < 10 L Critical Care Note - Critical Care Note Total time excluding time spent on procedures (mins): 60 - Evaluation and management of respiratory distress, hypoxia, hypotension, multiple re- evaluations, discussion with family, consultation with tertiary care center, coordination of admission, counseling of family <EARLE SIMON - Last Filed: 06/14/17 22:45> Discharge <POLLO MAJANO - Last Filed: 06/14/17 21:02> - Discharge Admitting Provider: Hospitalist Unit Admitted: IMCU <EARLE SIMON - Last Filed: 06/14/17 22:45> - Discharge Clinical Impression: Respiratory distress, Pulmonary fibrosis, Metabolic encephalopathy Hypotension Qualifiers: Hypotension type: unspecified hypotension type Qualified Code(s): I95.9 - Hypotension, unspecified Condition: Stable Disposition: ADMITTED INPATIENT Scribe Attestation: 06/14/17 22:38 I personally performed the services described in the documentation, reviewed and edited the documentation which was dictated to the scribe in my presence, and it accurately records my words and actions. (EARLE SIMON) Scribe Documentation - Scribe Written by Scribe:: Christi Lopez, 06/14/2017 17:18 acting as scribe for :: Samantha <POLLO MAJANO - Last Filed: 06/14/17 21:02>
[2017-06-14 17:12] LABS: ABSOLUTE BASOPHILS # (AUTO) 0.1 10^3/uL (0.0-0.2); ABSOLUTE EOSINOPHILS # (AUTO) 0.1 10^3/uL (0.0-0.6); ABSOLUTE LYMPHOCYTES (AUTO) 3.2 10^3/uL (0.5-4.7); ABSOLUTE MONOCYTES (AUTO) 0.9 10^3/uL (0.1-1.4); BASOPHILS % (AUTO) 0.7 % (0-2); EOSINOPHILS % (AUTO) 0.7 % (0-6); HEMATOCRIT 40.6 % (36.0-47.0); HEMOGLOBIN 13.7 g/dL (12.0-15.5); MEAN CORPUSCULAR HEMOGLOBIN 30.8 pg (27.0-33.4); MEAN CORPUSCULAR HGB CONC 33.9 g/dL (32.0-36.0); MEAN CORPUSCULAR VOLUME 91 fl (80-97); MONOCYTES % (AUTO) 8.3 % (3-13); PLATELET COUNT 261 10^3/uL (150-450); RED BLOOD COUNT 4.46 10^6/uL (3.72-5.28); RED CELL DISTRIBUTION WIDTH 16.3 % (11.5-14.0); SEGMENTED NEUTROPHILS % (AUTO) 62.3 % (42-78); TOTAL CELLS COUNTED % (AUTO) 100 %; WHITE BLOOD COUNT 11.3 10^3/uL (4.0-10.5)
[2017-06-14 17:16] LABS: VENOUS BLOOD BASE EXCESS -3.3 mmol/L; VENOUS BLOOD HCO3 24.9 mmol/L (20-32); VENOUS BLOOD PH 7.25 (7.30-7.42)
[2017-06-14 17:25] LABS: INTERNATIONAL RATION (INR) 1.07; PROTHROMBIN TIME 14.6 SEC (11.4-15.4)
--- NOTE | 2017-06-14 17:29 | RADIOLOGY REPORT (SQ) ---
EXAM DESCRIPTION: CHEST SINGLE VIEW COMPLETED DATE/TIME: 06/14/2017 5:20 pm REASON FOR STUDY: SOB COMPARISON: 04/19/2017 EXAM PARAMETERS: NUMBER OF VIEWS: One view. TECHNIQUE: Single frontal radiographic view of the chest acquired. RADIATION DOSE: NA LIMITATIONS: None. FINDINGS: LUNGS AND PLEURA: Pulmonary fibrosis seen in the right upper lobe and left lung. Stable. No acute pulmonary infiltrate or pleural effusion. MEDIASTINUM AND HILAR STRUCTURES: No masses. Contour normal. HEART AND VASCULAR STRUCTURES: Heart size borderline. BONES: No acute findings. HARDWARE: None in the chest. OTHER: No other significant finding. IMPRESSION: Stable pulmonary fibrosis. TECHNICAL DOCUMENTATION: JOB ID: [id number] [employer]- All Rights Reserved Reading location - IP/workstation name: [email or web address]
[2017-06-14 17:33] LABS: ALANINE AMINOTRANSFERASE 63 U/L (9-52); ALKALINE PHOSPHATASE 105 U/L (38-126); ANION GAP 8 (5-19); ASPARTATE AMINO TRANSFERASE 30 U/L (14-36); BILIRUBIN,DIRECT 0.6 mg/dL (0.0-0.4); BILIRUBIN,TOTAL 0.8 mg/dL (0.2-1.3); BLOOD UREA NITROGEN 14 mg/dL (7-20); CALCIUM 8.9 mg/dL (8.4-10.2); CARBON DIOXIDE 25 mmol/L (22-30); CHLORIDE 95 mmol/L (98-107); CREATINE KINASE 40 U/L (30-135); GLUCOSE 113 mg/dL (75-110); POTASSIUM 5.1 mmol/L (3.6-5.0); SODIUM 127.6 mmol/L (137-145); TOTAL PROTEIN 7.8 g/dL (6.3-8.2)
[2017-06-14 17:58] LABS: CREATINE KINASE MB 1.47 ng/mL (<4.55)
[2017-06-14 18:02] LABS: TROPONIN I 0.116 ng/mL
--- NOTE | 2017-06-14 19:01 | EKG REPORT ---
SEVERITY:- ABNORMAL ECG - SINUS RHYTHM CONSIDER RVH W/ SECONDARY REPOL ABNORMALITY : Confirmed by: Dawson Pat MD 14-Jun-2017 19:00:24
--- NOTE | 2017-06-14 19:10 | RADIOLOGY REPORT (SQ) ---
EXAM DESCRIPTION: CTA CHEST COMPLETED DATE/TIME: 06/14/2017 6:31 pm REASON FOR STUDY: recent surgery, evaluate for PE COMPARISON: Chest x-ray dated 06/14/[address] chest CT scan dated April 2017 TECHNIQUE: CT scan of the chest performed using helical scanning technique with dynamic intravenous contrast injection. Images reviewed with lung, soft tissue and bone windows. Reconstructed coronal and sagittal MPR images reviewed. Additional 3 dimensional post-processing performed to develop Maximal Intensity Projection images (MA P). All images stored on PACS. All CT scanners at this facility use dose modulation, iterative reconstruction, and/or weight based d osing when appropriate to reduce radiation dose to as low as reasonably achievable (ALARA). [facility]: Dose Right [facility]: CareDose [facility]: Dose Right [facility]: Teradose 4D [facility]: [employer] CONTRAST TYPE AND DOSE: contrast/concentration: Isovue 370.00 mg/ml; Total Contrast Delivered: 82.0 ml; Total Saline Delivered: 90.0 ml Contrast bolus optimized for the pulmonary arteries. Not diagnostic for the aorta. RENAL FUNCTION: Creatinine 1.16 RADIATION DOSE: CT Rad equipment meets quality standard of care and radiation dose reduction techniq ues were employed. CTDIvol: 16.7 - 29.8 mGy. DLP: 555 mGy-cm. . LIMITATIONS: None. FINDINGS: LUNGS AND PLEURA: The previously described chronic changes consistent with pulmonary fibro sis are again identified. No acute consolidations or pleural effusions are identified. AORTA AND GREAT VESSELS: No aneurysm. Contrast bolus not optimized for the aorta. HEART: No pericardial effusion. No significant coronary artery calcifications. PULMONARY ARTERIES: No emboli visualized in the main pulmonary arteries or the segmental branches. HILAR AND MEDIASTINAL STRUCTURES: No identified masses or abnormal nodes. HARDWARE: None in the chest. UPPER ABDOMEN: Dilated intrahepatic bile ducts are identified in clinical correlation is recommended. THYROID AND OTHER SOFT TISSUES: No masses. No adenopathy. BONES: No acute or significant finding. 3D MIPS: Confirm above findings. OTHER: No other significant finding. IMPRESSION: No evidence for pulmonary embolic disease. Extensive chronic appearing changes are agai n identified consistent with pulmonary fibrosis. No acute consolidations or pleural effusions. Othe r findings as noted above COMMENT: Quality ID # [id number]: Final reports with documentation of one or more dose reduction techniques (e.g., Automated exposure control, adjustment of the mA and/or kV according to patient size, use of iterative reconstruction technique) TECHNICAL DOCUMENTATION: JOB ID: [id number] [employer]- All Rights Reserved Reading location - IP/workstation name: [email or web address]
[2017-06-14 19:12] LABS: APPEARANCE,URINE SLIGHTLY-CLOUDY; BILIRUBIN,URINE NEGATIVE (NEGATIVE); COLOR,URINE YELLOW; GLUCOSE, URINE NEGATIVE (NEGATIVE); KETONES,URINE NEGATIVE (NEGATIVE); LEUKOCYTE ESTERASE,URINE NEGATIVE (NEGATIVE); NITRITE,URINE NEGATIVE (NEGATIVE); PROTEIN,URINE NEGATIVE (NEGATIVE); URINE SPECIFIC GRAVITY 1.011
[2017-06-14 19:35] LABS: ACETAMINOPHEN < 10 ug/mL (10-30); ALCOHOL < 10 mg/dL (NONE DETECTED); SALICYLATE < 1.0 mg/dL (2.0-20.0)
[2017-06-14 20:12] LABS: URINE AMPHETAMINES SCREEN NEGATIVE; URINE BARBITURATES SCREEN NEGATIVE; URINE BENZODIAZEPINES SCREEN UNCONFIRMED POSITIVE; URINE COCAINE SCREEN NEGATIVE; URINE MARIJUANA (THC) SCREEN NEGATIVE; URINE METHADONE SCREEN NEGATIVE; URINE PHENCYCLIDINE SCREEN NEGATIVE
[2017-06-14] MEDS ORDERED: DOXYCYCLINE HYCLATE 100 MG TABLET PO ONE (23:00)
[2017-06-14] MEDS ORDERED: ACETAMINOPHEN 325 MG TABLET PO PRN (23:02)
[2017-06-14] MEDS ORDERED: NORMAL SALINE 1000 ML 1,000 ML IV PRN (23:02)
[2017-06-14] MEDS ORDERED: PROMETHAZINE HCL INJ 25 MG/1 ML VIAL IV PRN (23:02)
[2017-06-14] MEDS ORDERED: ASPIRIN 325 MG TABLET, ENT COATED PO ONE (23:30)
[2017-06-15 00:41] LABS: ARTERIAL BLOOD BASE EXCESS -2.5 mmol/L; ARTERIAL BLOOD FIO2 50%; ARTERIAL BLOOD H2CO3 1.36 mmol/L (1.05-1.35); ARTERIAL BLOOD HCO3 23.5 mmol/L (20-26); ARTERIAL BLOOD O2 SATURATION 96.1 % (94-98); ARTERIAL BLOOD PCO2 45.3 mmHg (35-45); ARTERIAL BLOOD PH 7.33 (7.35-7.45); ARTERIAL BLOOD PO2 87.8 mmHg (80-100); ARTERIAL BLOOD TOTAL CO2 24.9 mmol/L (21-25)
[2017-06-15] MEDS: IPRATROPIUM/ALBUTEROL 0.5-2.5 MG/3 ML AMPUL NEB SCH ×2 (02:09→08:35)
[2017-06-15 02:33] LABS: HEMATOCRIT 42.4 % (36.0-47.0); HEMOGLOBIN 14.3 g/dL (12.0-15.5); MEAN CORPUSCULAR HEMOGLOBIN 30.9 pg (27.0-33.4); MEAN CORPUSCULAR HGB CONC 33.7 g/dL (32.0-36.0); MEAN CORPUSCULAR VOLUME 92 fl (80-97); PLATELET COUNT 191 10^3/uL (150-450); RED BLOOD COUNT 4.63 10^6/uL (3.72-5.28); RED CELL DISTRIBUTION WIDTH 16.1 % (11.5-14.0); WHITE BLOOD COUNT 6.4 10^3/uL (4.0-10.5)
[2017-06-15 02:49] LABS: ALANINE AMINOTRANSFERASE 64 U/L (9-52); ALBUMIN 4.1 g/dL (3.5-5.0); ALKALINE PHOSPHATASE 101 U/L (38-126); ANION GAP 11 (5-19); ASPARTATE AMINO TRANSFERASE 15 U/L (14-36); BILIRUBIN,DIRECT 0.6 mg/dL (0.0-0.4); BILIRUBIN,TOTAL 0.9 mg/dL (0.2-1.3); BLOOD UREA NITROGEN 11 mg/dL (7-20); CALCIUM 9.2 mg/dL (8.4-10.2); CARBON DIOXIDE 24 mmol/L (22-30); CHLORIDE 103 mmol/L (98-107); GLUCOSE 146 mg/dL (75-110); POTASSIUM 4.5 mmol/L (3.6-5.0); TOTAL PROTEIN 7.7 g/dL (6.3-8.2)
--- NOTE | 2017-06-15 03:55 | PDOC H&P ---
History of Present Illness Patient complains of: Worsening shortness of breath today. History of Present Illness: SUKHWINDER ARTIS is a 57 year old female with history of CAD/CHF, ESLD/COPD/ pulmonary fibrosis (on 4 L oxygen) was brought by EMS with above-mentioned complaints. The patient provided very limited history so most of the history was obtained from the ED physician and notes. The patient is currently on BIPAP. According to the ED note, the patient was having difficulty breathing when EMS arrived. She was found "slumped over" in a chair and she told them that she had an injection of Klonopin which made her sleepy. She resided in an assisted living. She denied any chest pain but en route to the hospital she became unresponsive and hypotensive. The patient currently seems to be comfortable on BiPAP. She denied any fever, chills, cough or sputum. She also denied any abdominal pain but complained of having diarrhea 2, no constipation or dysuria. She usually uses a wheelchair to ambulate. Of note, the patient was with hospice care for unknown duration and she has been discharged per patient (unknown reason at this time). In the ED, her temperature was not recorded, heart rate 56, respiratory rate 18 , blood pressure 96/68 (her blood pressure was 60/40 initially per ED physician ) with oxygen saturation of 95% on nonrebreather mask. Her WBC was 11.3 and her hemoglobin was 13.7. Her initial troponin was 0.116. Chest x-ray was done which showed stable pulmonary fibrosis. She also had a CAT scan angiogram of the chest which was negative for PE but showed extensive chronic appearing changes consistent with pulmonary fibrosis, no consolidation or pleural effusion. She received 2 DuoNeb treatments, 125 mg IV Solu-Medrol and 1 L of normal saline with improvement in her symptoms. Past Medical History Medical History: Other - According to the patient and based on previous records Cardiac Medical History: Reports: Congestive Heart Failure, Coronary Artery Disease, Hypertension Pulmonary Medical History: Reports: Bronchitis - chronic, Chronic Obstructive Pulmonary Disease (COPD), Respiratory Failure - Chronic on 4L home oxygen. Musculoskeltal Medical History: Reports: Fibromyalgia Psychiatric Medical History: Reports: Bipolar Disorder, Depression Past Surgical History Past Surgical History: Reports: Cardiac Catheterization - 07/19, no stents, Cholecystectomy, Orthopedic Surgery - back x 2, left knee, Tubal Ligation Denies: Hysterectomy Social History Smoking Status: Current Every Day Smoker Cigarettes Packs Per Day: 0.5 - for more than 30 years. Frequency of Alcohol Use: None Hx Recreational Drug Use: No Drugs: None Hx Prescription Drug Abuse: No - Advance Directive Resuscitation Status: Do Not Resuscitate Family History Family History: CVA, DM, Hypertension, Other - parkinson's Parental Family History Reviewed: Yes - Father: DM2. Mother: DM2 per patient. Children Family History Reviewed: No Sibling(s) Family History Reviewed.: Yes Medication/Allergy Home Medications: Albuterol Sulfate [Proair HFA] 2 puff IH Q4 PRN 10/28/16 Benztropine Mesylate [Benztropine Mesylate 2 mg Tablet] 2 mg PO DAILY 10/28/16 Bupropion HCl [Bupropion Xl] 150 mg PO BID 10/28/16 Cholecalciferol (Vitamin D3) [Vitamin D3 2000 unit Tablet] 2,000 unit PO DAILY 10/28/16 Clonazepam [Klonopin 1 mg Tablet] 1 mg PO TIDP PRN 10/28/16 Gabapentin [Neurontin 300 mg Capsule] 300 mg PO BID 10/28/16 Ivermectin [Stromectol 3 mg Tablet] 21 mg PO [id number] 10/28/16 Lurasidone HCl [Latuda] 60 mg PO Q12 10/28/16 Omeprazole 20 mg PO DAILY 10/28/16 Potassium Chloride [Klor-Con M10] 10 meq PO DAILY 10/28/16 Simvastatin [Zocor 10 mg Tablet] 10 mg PO DAILY 10/28/16 Tizanidine HCl [Zanaflex 4 mg Tablet] 4 mg PO TID 10/28/16 Albuterol Sulfate [Ventolin 0.083% Neb 2.5 mg/3 mL Ampul] 2.5 mg NEB RTQ2HP PRN vial.neb 10/30/16 Docusate Sodium [Colace 100 mg Capsule] 100 mg PO BID capsule 10/30/16 Fluticasone/Salmeterol [Advair 500-50 Diskus 14 Dose/Diskus] 1 inh IH Q12 inhaler 10/30/16 Ipratropium/Albuterol Sulfate [Combivent Respimat 4 gm Mdi] 1 puff IH Q6 aer.w.adap 10/30/16 Oxycodone HCl 7.5 mg PO Q6 #20 tablet 10/30/16 Polyethylene Glycol 3350 [Miralax Powder 17 gm/Packet] 1 packet PO DAILY #1 pkg 10/30/16 Benztropine Mesylate [Benztropine Mesylate 2 mg Tablet] 2 mg PO ASDIR PRN Ibuprofen 600 mg PO PRN PRN 04/14/17 Loperamide HCl [Loperamide] 2 mg PO PRN PRN 04/14/17 Magnesium Hydroxide [Milk of Magnesia] 30 ml PO DAILYP PRN 04/14/17 Meclizine HCl 25 mg PO PRN PRN 04/14/17 Trazodone HCl [Desyrel] 300 mg PO HSP PRN 04/14/17 Allergies/Adverse Reactions: hydromorphone HCl [From Dilaudid] Allergy (Verified 10/28/16 14:55) morphine [Morphine] Allergy (Verified 10/28/16 14:55) Review of Systems ROS unobtainable: Other - Pertinent positives and negatives as detailed in the HPI. Physical Exam Vital Signs: Temp Pulse Resp BP Pulse Ox 27 H 116/45 L 98 06/14/17 22:21 06/14/17 22:21 06/14/17 22:21 Intake & Output 06/13/17 06/14/17 06/15/17 06:59 06:59 06:59 Output Total 1500 Balance -1500 Weight 104.4 kg General appearance: PRESENT: no acute distress - on BIPAP., well-developed, well -nourished Head exam: PRESENT: atraumatic, normocephalic Eye exam: PRESENT: conjunctiva pink, PERRLA. ABSENT: scleral icterus Mouth exam: PRESENT: other - on BIPAP mask. Neck exam: PRESENT: full ROM. ABSENT: JVD Respiratory exam: PRESENT: decreased breath sounds - markedly decreased.. ABSENT: rales, rhonchi, wheezes Cardiovascular exam: PRESENT: RRR, +S1, +S2 Pulses: PRESENT: normal dorsalis pedis pul GI/Abdominal exam: PRESENT: normal bowel sounds, soft. ABSENT: distended, rebound, tenderness Rectal exam: PRESENT: deferred Musculoskeletal exam: PRESENT: other - Able to move all 4 extremities. Neurological exam: PRESENT: alert, altered, motor sensory deficit - grossly. no babinski or clonus. Gait was not assessed., other - limited exam. Skin exam: PRESENT: dry, warm. ABSENT: erythema, rash Results Laboratory Results: 06/14/17 16:52 06/14/17 16:52 06/14/17 06/14/17 06/14/17 16:52 16:52 16:52 WBC 11.3 H RBC 4.46 Hgb 13.7 Hct 40.6 MCV 91 MCH 30.8 MCHC 33.9 RDW 16.3 H Plt Count 261 Seg Neutrophils % 62.3 Lymphocytes % 28.0 Monocytes % 8.3 Eosinophils % 0.7 Basophils % 0.7 Absolute Neutrophils 7.0 Absolute Lymphocytes 3.2 Absolute Monocytes 0.9 Absolute Eosinophils 0.1 Absolute Basophils 0.1 VBG pH VBG pCO2 VBG HCO3 VBG Base Excess Sodium 127.6 L Potassium 5.1 H Chloride 95 L Carbon Dioxide 25 Anion Gap 8 BUN 14 Creatinine 1.16 Est GFR ( Amer) 59 L Est GFR (Non-Af Amer) 49 L Glucose 113 H Lactic Acid 1.6 Calcium 8.9 Total Bilirubin 0.8 AST 30 ALT 63 H Alkaline Phosphatase 105 Total Protein 7.8 Albumin 4.0 Urine Color Urine Appearance Urine pH Ur Specific [place] Urine Protein Urine Glucose (UA) Urine Ketones Urine Blood Urine Nitrite Ur Leukocyte Esterase Urine WBC (Auto) Urine RBC (Auto) 06/14/17 06/14/17 16:52 17:45 WBC RBC Hgb Hct MCV MCH MCHC RDW Plt Count Seg Neutrophils % Lymphocytes % Monocytes % Eosinophils % Basophils % Absolute Neutrophils Absolute Lymphocytes Absolute Monocytes Absolute Eosinophils Absolute Basophils VBG pH 7.25 L VBG pCO2 58.0 VBG HCO3 24.9 VBG Base Excess -3.3 Sodium Potassium Chloride Carbon Dioxide Anion Gap BUN Creatinine Est GFR ( Amer) Est GFR (Non-Af Amer) Glucose Lactic Acid Calcium Total Bilirubin AST ALT Alkaline Phosphatase Total Protein Albumin Urine Color YELLOW Urine Appearance SLIGHTLY-CLOUDY Urine pH 5.0 Ur Specific [place] 1.011 Urine Protein NEGATIVE Urine Glucose (UA) NEGATIVE Urine Ketones NEGATIVE Urine Blood NEGATIVE Urine Nitrite NEGATIVE Ur Leukocyte Esterase NEGATIVE Urine WBC (Auto) 1 Urine RBC (Auto) 0 06/14/17 06/14/17 06/14/17 16:52 16:52 20:30 Creatine Kinase 40 CK-MB (CK-2) 1.47 Troponin I 0.116 0.082 EKG Comments: Lead EKG, sinus rhythm, ventricular rate 60, axis +90, RBBB, T-wave inversion in leads V1 through V4 and also in inferior leads. A previous 12-lead EKG done on 04/19/2017, sinus rhythm, ventricular rate 50, axis +90, RBBB, T-wave inversion in leads V1 through V3 and in III and aVF (less pronounced than recent 12 lead EKG). Impressions: Chest X-Ray 06/14/17 16:48 IMPRESSION: Stable pulmonary fibrosis. Chest/Abdomen CTA 06/14/17 17:43 IMPRESSION: No evidence for pulmonary embolic disease. Extensive chronic appearing changes are again identified consistent with pulmonary fibrosis. No acute consolidations or pleural effusions. Other findings as noted above Assessment & Plan - Diagnosis (1) Acute and chronic respiratory failure, unspecified whether with hypoxia or hypercapnia Qualifiers: Respiratory failure complication: hypoxia and hypercapnia Qualified Code(s) : J96.21 - Acute and chronic respiratory failure with hypoxia; J96.22 - Acute and chronic respiratory failure with hypercapnia; J96.22 - Acute and chronic respiratory failure with hypercapnia; J96.22 - Acute and chronic respiratory failure with hypercapnia Is this a current diagnosis for this admission?: Yes Plan: Secondary to COPD/pulmonary fibrosis exacerbation (she still smokes). Chest x- ray and CAT scan angiogram of the chest reviewed. We will continue DuoNeb treatments, IV Medrol and doxycycline. BiPAP as needed. (2) Hypotensive episode Is this a current diagnosis for this admission?: Yes Plan: on admission, resolved with IV fluids. No evidence of infection at this time. According to the patient, her appetite has been poor over the last couple weeks. Will continue IV fluids and monitor. I am not sure if she is on any blood pressure medications. She reportedly received Klonopin prior to admission. (3) Elevated troponin Is this a current diagnosis for this admission?: Yes Plan: borderline elevated, trending down. Her twelve-lead EKG showed T-wave inversion in anterior and inferior leads more pronounced when compared to previous twelve-lead EKG, secondary to ischemia most likely given hypotension prior to admission. According to ED physician, she discussed further cardiac intervention/cath with the patient and her family and they declined. She also called [facility] for transfer for further intervention. However, given the patient's overall poor prognosis with advanced lung disease and the fact that her troponins were trending down, medical management was recommended. Will continue to cycle cardiac enzymes and follow-up echocardiogram. Will also continue aspirin. Her medications' list needs clarification. (4) Hyponatremia Is this a current diagnosis for this admission?: Yes Plan: possibly due to hypovolemia. Will continue IV fluids and repeat BMP in a.m. (5) Smoker Is this a current diagnosis for this admission?: Yes Plan: Less than a pack a day for many years. She does not seem motivated to quit. She refused a nicotine patch - Time Time Spent: Greater than 70 Minutes - Inpatient Certification Based on my medical assessment, after consideration of the patient's comorbidities, presenting symptoms, or acuity I expect that the services needed warrant INPATIENT care.: Yes I certify that my determination is in accordance with my understanding of Medicare's requirements for reasonable and necessary INPATIENT services [42 CFR 412.3e].: Yes
[2017-06-15] MEDS ORDERED: HEPARIN SOD (PORCINE) 5,000 UNIT/ML 1 ML SYRINGE SUBCUT SCH (06:00)
[2017-06-15] MEDS ORDERED: METHYLPREDNISOLONE INJ 40 MG/1 ML SDV IV SCH (06:00)
[2017-06-15] MEDS ORDERED: DOXYCYCLINE HYCLATE 100 MG TABLET PO SCH (10:00)
[2017-06-15] MEDS ORDERED: ASPIRIN 325 MG TABLET, ENT COATED PO SCH (10:00)
--- NOTE | 2017-06-15 10:32 | PDOC DISCHARGE SUMMARY ---
General - Admit/Disc Date/PCP Admission Date/Primary Care Provider: 06/14/17 23:22 Discharge Date: 06/15/17 - Discharge Diagnosis (1) Acute and chronic respiratory failure Is this a current diagnosis for this admission?: Yes (2) Elevated troponin Is this a current diagnosis for this admission?: Yes (3) Hyponatremia Is this a current diagnosis for this admission?: Yes (4) Pulmonary fibrosis Is this a current diagnosis for this admission?: Yes - Additional Information Resuscitation Status: Do Not Resuscitate Home Medications: Albuterol Sulfate [Proair HFA] 2 puff IH Q4 PRN 10/28/16 Benztropine Mesylate [Benztropine Mesylate 2 mg Tablet] 2 mg PO DAILY 10/28/16 Bupropion HCl [Bupropion Xl] 150 mg PO BID 10/28/16 Cholecalciferol (Vitamin D3) [Vitamin D3 2000 unit Tablet] 2,000 unit PO DAILY 10/28/16 Clonazepam [Klonopin 1 mg Tablet] 1 mg PO TIDP PRN 10/28/16 Gabapentin [Neurontin 300 mg Capsule] 300 mg PO BID 10/28/16 Ivermectin [Stromectol 3 mg Tablet] 21 mg PO [id number] 10/28/16 Lurasidone HCl [Latuda] 60 mg PO Q12 10/28/16 Omeprazole 20 mg PO DAILY 10/28/16 Potassium Chloride [Klor-Con M10] 10 meq PO DAILY 10/28/16 Simvastatin [Zocor 10 mg Tablet] 10 mg PO DAILY 10/28/16 Tizanidine HCl [Zanaflex 4 mg Tablet] 4 mg PO TID 10/28/16 Albuterol Sulfate [Ventolin 0.083% Neb 2.5 mg/3 mL Ampul] 2.5 mg NEB RTQ2HP PRN vial.neb 10/30/16 Docusate Sodium [Colace 100 mg Capsule] 100 mg PO BID capsule 10/30/16 Fluticasone/Salmeterol [Advair 500-50 Diskus 14 Dose/Diskus] 1 inh IH Q12 inhaler 10/30/16 Ipratropium/Albuterol Sulfate [Combivent Respimat 4 gm Mdi] 1 puff IH Q6 aer.w.adap 10/30/16 Oxycodone HCl 7.5 mg PO Q6 #20 tablet 07/28/17 Polyethylene Glycol 3350 [Miralax Powder 17 gm/Packet] 1 packet PO DAILY #1 pkg 10/30/16 Benztropine Mesylate [Benztropine Mesylate 2 mg Tablet] 2 mg PO ASDIR PRN Ibuprofen 600 mg PO PRN PRN 04/14/17 Loperamide HCl [Loperamide] 2 mg PO PRN PRN 04/14/17 Magnesium Hydroxide [Milk of Magnesia] 30 ml PO DAILYP PRN 04/14/17 Meclizine HCl 25 mg PO PRN PRN 04/14/17 Trazodone HCl [Desyrel] 300 mg PO HSP PRN 04/14/17 History of Present Illness Patient complains of: shortness of breath History of Present Illness: SUKHWINDER ARTIS is a 57 year old female Patient was admitted overnight with difficulty breathing and shortness of breath. It appears she was placed on BiPAP and she had actually improved so that by time I saw her this morning she was on 4 L of oxygen with adequate oxygenation. Hospital Course Hospital Course: Patient was admitted overnight with difficulty breathing and shortness of breath. It appears she was placed on BiPAP and she had actually improved so that by time I saw her this morning she was on 4 L of oxygen with adequate oxygenation. Patient however told me that she will be signing out AGAINST MEDICAL ADVICE when I explained to her that she needs to stay in the hospital longer as she was still in the emergency room at this time. I explained to her that she was not stable to be discharged and I will not be able to discharge her and she was made aware of the potential and possible serious consequences of signing out AGAINST MEDICAL ADVICE but patient insisted on doing these regardless. The nurse also discussed with and initially convinced her to stay but then patient change her mind again and is adamant about leaving the hospital. Patient is awake and alert and oriented 3 and aware of the risk of leaving the hospital AGAINST MEDICAL ADVICE Physical Exam Vital Signs: Temp Pulse Resp BP Pulse Ox 98.3 F 84 20 151/94 H 96 06/15/17 10:06 06/15/17 08:35 06/15/17 09:04 06/15/17 10:06 06/15/17 10:06 General appearance: PRESENT: no acute distress, well-developed Respiratory exam: PRESENT: crackles, decreased breath sounds Cardiovascular exam: PRESENT: RRR. ABSENT: diastolic murmur, rubs, systolic murmur GI/Abdominal exam: PRESENT: normal bowel sounds, soft. ABSENT: distended, guarding, mass, organolmegaly, rebound, tenderness Rectal exam: PRESENT: deferred Results Laboratory Results: 06/15/17 02:20 06/15/17 02:20 06/15/17 06/15/17 06/15/17 00:13 02:20 02:20 WBC 6.4 RBC 4.63 Hgb 14.3 Hct 42.4 MCV 92 MCH 30.9 MCHC 33.7 RDW 16.1 H Plt Count 191 Carbonic Acid 1.36 H HCO3/H2CO3 Ratio 17:1 ABG pH 7.33 L ABG pCO2 45.3 H ABG pO2 87.8 ABG HCO3 23.5 ABG O2 Saturation 96.1 ABG Base Excess -2.5 FiO2 50% Sodium 138.0 Potassium 4.5 Chloride 103 Carbon Dioxide 24 Anion Gap 11 BUN 11 Creatinine 0.80 Est GFR ( Amer) > 60 Est GFR (Non-Af Amer) > 60 Glucose 146 H Calcium 9.2 Magnesium Total Bilirubin 0.9 AST 15 ALT 64 H Alkaline Phosphatase 101 Total Protein 7.7 Albumin 4.1 06/15/17 02:20 WBC RBC Hgb Hct MCV MCH MCHC RDW Plt Count Carbonic Acid HCO3/H2CO3 Ratio ABG pH ABG pCO2 ABG pO2 ABG HCO3 ABG O2 Saturation ABG Base Excess FiO2 Sodium Potassium Chloride Carbon Dioxide Anion Gap BUN Creatinine Est GFR ( Amer) Est GFR (Non-Af Amer) Glucose Calcium Magnesium 1.7 Total Bilirubin AST ALT Alkaline Phosphatase Total Protein Albumin 06/15/17 06/15/17 02:20 08:39 Troponin I 0.084 0.080 Impressions: Chest X-Ray 06/14/17 16:48 IMPRESSION: Stable pulmonary fibrosis. Chest/Abdomen CTA 06/14/17 17:43 IMPRESSION: No evidence for pulmonary embolic disease. Extensive chronic appearing changes are again identified consistent with pulmonary fibrosis. No acute consolidations or pleural effusions. Other findings as noted above Qualifiers - * PATEINT BEING DISCHARGED WITH ANY OF THE FOLLOWING DIAGNOSIS?: No
[2017-06-15 11:14] VITALS: BP 132/108
== END 2017-06-15 11:15 | disposition left against medical advice (07) | DRG 189 ==
LOC: ER 16:44 → EH 23:22
PROVIDERS: ADMIT Internal Medicine Geriatric Medicine; ATTEND Internal Medicine Geriatric Medicine
PROC: 5A09457 Assistance with Respiratory Ventilation, 24-96 Consecutive Hours, Continuous Positive Airway Pressure (ICD-10-PCS; principal; 2017-06-14)
PROC: 3E0F73Z Introduction of Anti-inflammatory into Respiratory Tract, Via Natural or Artificial Opening (ICD-10-PCS; 2017-06-15)
DX: J96.21 Acute and chronic respiratory failure with hypoxia (principal); G93.41 Metabolic encephalopathy; I95.9 Hypotension, unspecified; J84.10 Pulmonary fibrosis, unspecified; I11.0 Hypertensive heart disease with heart failure; E87.1 Hypo-osmolality and hyponatremia; I50.9 Heart failure, unspecified; J96.22 Acute and chronic respiratory failure with hypercapnia; Z66 Do not resuscitate; I25.10 Atherosclerotic heart disease of native coronary artery without angina pectoris; J44.9 Chronic obstructive pulmonary disease, unspecified; M79.7 Fibromyalgia; F31.9 Bipolar disorder, unspecified; I45.10 Unspecified right bundle-branch block; F17.210 Nicotine dependence, cigarettes, uncomplicated; F41.9 Anxiety disorder, unspecified; Z99.81 Dependence on supplemental oxygen; Z79.899 Other long term (current) drug therapy; Z90.49 Acquired absence of other specified parts of digestive tract; Z88.6 Allergy status to analgesic agent; Z82.3 Family history of stroke; Z83.3 Family history of diabetes mellitus; Z82.49 Family history of ischemic heart disease and other diseases of the circulatory system
CPT/HCPCS: 36415; 51702; 71045; 71275; 80053; 80307; 81001; 82550; 82553; 82803; 82962; 83605; 83735; 83880; 84484; 85025; 85027; 85610; 87040; 87086; 93005; 93010; 94640; 94660; 96361; 96374; 99291; J1644; J2920; J2930; J7030; J7620